=== PATIENT | female | born 1955 | race Caucasian/White ===

== ENCOUNTER → 2017-11-22 12:46 | Outpatient (CLI) | payer BC, SELFPAY ==
--- NOTE | 2017-11-22 12:49 | CT_ITS ---
EXAM: CT LUNG LOW DOSE WO CONTRAST COMPARISON: 11/22/2017 HISTORY: 62-year-old female with greater than 30 pack-year smoking history asymptomatic ORDERING PHYSICIAN: Erik Chambers MD PATIENT AGE: 62 years TECHNIQUE: The exam was performed on a GE Light Speed [address] scanner using 2.95 mGy CTDI. A low dose helical CT CHEST was performed on a multi-detector scanner The LDCT was performed in a facility that meets the criteria for the screening program. Data regarding this exam was submitted to ACR which is an approved registry. The order for this exam indicates that it came as a result of a lung cancer screening counseling shard decision-making visit that included all the elements required of such a visit including smoking cessation. The radiologist interpreting this exam meets the [facility] criteria for the LDCT lung cancer screening program. The exam is reported using the Lung-RADS classification scale and reported to the ACR registry. NOTE: This study was performed for the specific purposes of lung cancer screening and is not an alternative to diagnostic chest CT. RADIATION DOSE: CTDI vol(CT dose Index-volume) = 2.95mG DLP (Dose Length Product) = 108.65 mGcm FINDINGS: There are scattered small mediastinal, and hilar lymph nodes not significantly changed. Small bilateral axillary nodes are present. One noted in the left axilla is slightly larger measuring 16 x 11 mm previously 14 x 8 mm. Centrilobular emphysematous changes. Calcified granulomas present in the left upper lobe with a small linear opacity posterior to the granuloma which is stable. No suspicious pulmonary nodules are evident. There are coronary artery calcifications. IMPRESSION: 1. Lung RADS Category: 2, benign 2. Other findings: Centrilobular emphysema, coronary artery disease, Mild left axillary adenopathy. RECOMMENDATIONS: 12 month LDCT screening Correlation with physical exam to the mildly prominent left axillary lymph node
--- NOTE | 2017-11-22 12:50 | XR_ITS ---
XR DEXA axial skeleton HISTORY: ITS.REASON: POST MENOAPSUAL ORDERING PHYSICIAN: Erik Chambers MD PATIENT AGE: 62 years COMPARISON: 03/28/2012 FINDINGS: The BMD measured at the Right femoral neck is 0.738 g/cm squared with a T score of -2.2 . The L1 L4 density is 0.966 g/sq cm with a T score of -1.8 This is considered Osteopenic according to the World Health Organization criteria. Fracture risk is Moderate. Treatment is advised. The hip density has increased by 5 % in the L-spine density has increased by 1.2% compared to previous exam. IMPRESSION: Osteopenia with moderate fracture risk. Recommend follow-up exam November 2019
== END ==
PROVIDERS: Visit Provider Family Medicine
DX: Z87.891 Personal history of nicotine dependence (principal); Z12.2 Encounter for screening for malignant neoplasm of respiratory organs; Z13.820 Encounter for screening for osteoporosis
CPT/HCPCS: 77080

== ENCOUNTER → 2018-05-23 09:39 | Outpatient (CLI) | payer BC, SELFPAY ==
--- NOTE | 2018-05-23 09:45 | MM_ITS ---
MM Dig screening mamm BI w/CAD ORDERING PHYSICIAN : Erik Chambers MD PATIENT AGE: 62 years GENDER: Female COMPARISON: November 2014, February 2016, April 2017 INDICATION: ITS.REASON: SCREENING. No hormones no new complaints. Family history. Mother breast cancer age 79 TECHNIQUE: Standard CC and MLO images were obtained. R2 CAD reviewed. FINDINGS: Fatty replacement with Relatively low-density breast. Minimal residual fibroglandular elements throughout both central portion breast. . No dominant mass nor suspicious calcifications.. No significant new findings. RIGHT BREAST:No new areas of significant concern Progressive dense calcification at 5 mm area deep right breast likely reflecting a small calcified fibroadenoma LEFT BREAST:No significant new findings. Small axillary and deep intramammary nodes adjacent IMPRESSION: ...... Stable bilateral mammogram. No significant new findings. Bilateral follow-up in one year recommended. BI-RADS Category: 1 Negative RECOMMENDED FOLLOW-UP: 1YR 1 YEAR FOLLOW-UP (A letter has been sent to the patient regarding results of the study.)
== END ==
PROVIDERS: PCP Family Medicine; Visit Provider Family Medicine
DX: Z12.31 Encounter for screening mammogram for malignant neoplasm of breast (principal)
CPT/HCPCS: 77067

== ENCOUNTER → 2019-01-31 13:25 | Outpatient (CLI) | payer BC, SELFPAY ==
--- NOTE | 2019-01-31 13:31 | CT_ITS ---
EXAM: CT LUNG LOW DOSE WO CONTRAST TECHNIQUE: The exam was performed on a GE Light Speed [address] scanner using 3.0 mGy CTDI. A low dose helical CT CHEST was performed on a multi-detector scanner. All CT scans at this facility use one or more dose reduction techniques, viz.: automated exposure control, ma/kV adjustment per patient size (including targeted exams where dose is matched to indication, i.e. head) or iterative reconstruction technique. The LDCT was performed in a facility that meets the criteria for the screening program. Data regarding this exam was submitted to ACR which is an approved registry. The order for this exam indicates that it came as a result of a lung cancer screening counseling shard decision-making visit that included all the elements required of such a visit including smoking cessation. The radiologist interpreting this exam meets the CMS criteria for the LDCT lung cancer screening program. The exam is reported using the Lung-RADS classification scale and reported to the ACR registry. NOTE: This study was performed for the specific purposes of lung cancer screening and is not an alternative to diagnostic chest CT. RADIATION DOSE: CTDI vol(CT dose Index-volume) = 2.9 mGy DLP (Dose Length Product) = 102.38 mGy-cm COMPARISON: 11/22/2017 HISTORY: 1 pack per day 47 years = 45 pack-year . Currently smoking with no sign or symptoms of lung cancer FINDINGS.: MEDIASTINUM. Scattered small/moderate mediastinal, and hilar lymph nodes not significantly changed. The largest right paratracheal node measuring 13 mm x 10 mm. Unchanged in size. Similar size left precarinal node partially calcified old granulomatous process. Also dense calcified node AP window reflecting old granulomatous disease. Small calcified left hilar nodes. Reflecting the same. Lungs. Calcified granuloma at the lingula measures less than 7 mm size again observed. Stable. Benign feature. Minimal scarring lingula. Minor linear scarring at CP angles is seen on sagittal views. Scant apical pleural parenchymal scarring, stable. These are stable and not Not of significance. Small bilateral axillary nodes are present. One more generous nodes at the left axilla appear stable today measuring 14.2 x 8.8 mm-this actually measures slightly less than 11/22/2017 Centrilobular emphysematous changes. Calcified granulomas present in the left upper lobe with a small linear opacity posterior to the granuloma which is stable. No suspicious pulmonary nodules are evident. . coronary artery calcifications again observed. Likely small hiatal hernia accounts for the thickened appearance at the GE junction region of the distal most esophagus. Axial 67, sagittal 47. The left lobe thyroid more generous than the right measuring roughly 4.1 cm length. Likely a small 7 mm nodule at the lower pole left lobe at junction with isthmus. No prominent nor significant change here since previous study IMPRESSION:......... 1. Lung RADS Category: 2, benign .. ... No suspicious lung nodules. Or mass .... Stable granulomatous disease. With nodes peripheral calcified granuloma & stable small/moderate mediastinal nodes 2. Other findings: ... Centrilobular emphysema, ... Coronary artery calcification/ disease,. Atherosclerotic calcification aortic arch11 ... Likely small hiatal hernia, likely accounts for the mild wall thickening here and towards distal most esophagus. ...Stable minor axillary nodes most notable on the left... RECOMMENDATIONS: 12 month LDCT screening Correlation with history of physical exam regarding the left axillary nodes & history of of significant GE reflux :
== END ==
PROVIDERS: PCP Family Medicine; Visit Provider Family Medicine
DX: Z12.2 Encounter for screening for malignant neoplasm of respiratory organs (principal); Z87.891 Personal history of nicotine dependence

== ENCOUNTER → 2019-06-30 09:04 | Outpatient (CLI) | payer BC, SELFPAY ==
--- NOTE | 2019-06-30 09:08 | MM_ITS ---
PROCEDURE: MM DIG SCREENING MAMM BI W/CAD Patient Age:63Y CLINICAL INDICATION: SCREENING no hormones;, no new complaints. Family history. Mother with breast cancer age 79. COMPARISON: DIGMAMMS MAMMOGRAM SCREEN-YIELD ENGINEER N/C from 12/20/2004 DIGMAMMS MAMMOGRAM SCREEN-YIELD ENGINEER N/C from 12/20/2004 [facility] DIGITAL MAMM-SCREEN BILATERAL from 03/28/2012 [facility] DIG MAMM-SCREEN CARROLL from 11/20/2013 [facility] DIG MAMM-SCREEN CARROLL from 11/24/2014 [facility] DIG MAMM-SCREEN CARROLL from 03/23/2016 [facility] DIG MAMM- CARROLL ADD VIEWS from 04/04/2016 the the [facility] DIG MAMM-SCREEN CARROLL W/CAD from 05/04/2017 [facility] MM Dig screening mamm BI w/CAD from 05/23/2018 TECHNIQUE: Standard CC and MLO images were obtained. R2 CAD reviewed. Additional MLO view of the left breast included FINDINGS: the minimal residual fibroglandular elements most evident about the retroareolar region and central breast..-overall low lower density, breast minor asymmetry, but no significant new findings. No dominant nor suspicious mass. No suspicious calcifications.. No new areas of concern on visual inspection. CAD highlights no significant features, only a stable benign left axillary lymph node highlighted Bilateral follow-up 1 year recommended. RIGHT BREAST stable with no new areas of concern. Progressively dense calcification of a small probable 4.5 mm fibroadenoma 6 o'clock central breast. The LEFT BREAST: Small focal a distal density inferior retroareolar region, just behind and inferior to the nipple. This measures just over 6 mm size and is a subtle change since the prior studies but it could be due to overlapping shadow but most likely reflects a area of ductal prominence. Recommend MLO, 90 degree, cc spot views retroareolar region with subsequent ultrasound to further evaluate. IMPRESSION: Left breast but small focal 6 mm ovoid density in retroareolar region most likely related additional ductal prominence or dilatation but subtle change since prior studies which does warrant spot views and ultrasound left breast. Right breast is stable. Follow-up right mammogram 1 year BI-RAD Category: 0 Need Additional Imaging Evaluation FOLLOW-UP: IMM Immediate Follow-up Recommended Spot views retroareolar region left breast; with subsequent ultrasound left breast if density persist (A letter has been sent to the patient regarding results of the study.) Dictated by: Jesse Garcia MD 07/01/2019 11:28 Electronically signed by Jesse Garcia MD in [place] 07/01/2019 11:28
== END ==
PROVIDERS: PCP Family Medicine; Visit Provider Family Medicine
DX: Z12.31 Encounter for screening mammogram for malignant neoplasm of breast (principal)
CPT/HCPCS: 77067

== ENCOUNTER → 2019-07-10 13:23 | Outpatient (CLI) | payer BC, SELFPAY ==
--- NOTE | 2019-07-10 13:26 | MM_ITS ---
PROCEDURE: MM DIG MAMM DX UNILAT LT CAD CLINICAL INDICATION: ABN MAMM Follow-up abnormal mammogram COMPARISON: [facility] DIG MAMM-SCREEN CARROLL W/CAD from 05/04/2017 [facility] MM Dig screening mamm BI w/CAD from 05/23/2018 MM DIG SCREENING MAMM BI W/CAD from 06/30/2019 TECHNIQUE: Problem solving views performed of left breast FINDINGS: Average fibroglandular tissue. There is a 6 mm well-circumscribed nodule in the retroareolar region corresponding to the area of asymmetric density noted on the screening exam. Ultrasound is suggested but was not performed on the day of the diagnostic mammogram. No other significant anomalies are evident. IMPRESSION: 6 mm retroareolar nodule for which ultrasound is recommended. BI-RAD Category: 0 Need Additional Imaging Evaluation FOLLOW-UP: IMM Immediate Follow-up Recommended (A letter has been sent to the patient regarding results of the study.) Dictated by: Ramon Polanco MD 07/15/2019 10:23 Electronically signed by Ramon Polanco MD in [place] 07/15/2019 10:25
== END ==
PROVIDERS: PCP Family Medicine; Visit Provider Family Medicine
DX: R92.8 Other abnormal and inconclusive findings on diagnostic imaging of breast (principal)
CPT/HCPCS: 77065

== ENCOUNTER → 2019-07-18 10:32 | Outpatient (CLI) | payer BC, SELFPAY ==
--- NOTE | 2019-07-18 10:34 | US_ITS ---
PROCEDURE: US BREAST LT COMPLETE CLINICAL INDICATION: ABNORMAL MAMM Follow-up abnormal mammogram COMPARISON: MM DIG MAMM DX UNILAT LT CAD from 07/10/2019 FINDINGS: There is a 6 mm complicated cyst in the retroareolar region corresponding to the mammographic abnormality. There is a small septation within the cyst with some minimal irregularity of the wall. No other significant sonographic abnormalities are evident IMPRESSION: Complicated cyst in the left retroareolar region corresponding to the mammographic abnormality. BI-RADS category 3 probably benign. Recommend six-month mammographic and sonographic follow-up Dictated by: Ramon Polanco MD 07/21/2019 11:00 Electronically signed by Ramon Polanco MD in [place] 07/21/2019 11:00
== END ==
PROVIDERS: PCP Family Medicine; Visit Provider Family Medicine
DX: R92.8 Other abnormal and inconclusive findings on diagnostic imaging of breast (principal)
CPT/HCPCS: 76641

== ENCOUNTER → 2020-11-18 07:34 | Outpatient (CLI) | payer BC, SELFPAY ==
--- NOTE | 2020-11-18 07:38 | CT_ITS ---
PROCEDURE: CT LUNG SCREENING CLINICAL INDICATION: HX OF NICOTINE DEPENDENCE Current smoker 45 pack year smoking history COMPARISON: CT LUNGSCREEN CT lung screening from 01/31/2019 TECHNIQUE: The exam was performed on a GE Light Speed [address] scanner using 2.90 mGy CTDI. A low dose helical CT CHEST was performed on a multi-detector scanner. All CT scans at the facility use one or more dose reduction, viz: automated exposure control, ma/kV adjustment per patient size (including targeted exams where dose is matched to indication, i.e. head), or iterative reconstruction technique. The LDCT was performed in a facility that meets the criteria for the screening program. Data regarding this exam was submitted to ACR which is an approved registry. The order for this exam indicates that it came as a result of a lung cancer screening counseling shard decision-making visit that included all the elements required of such a visit including smoking cessation. The radiologist interpreting this exam meets the [facility] criteria for the LDCT lung cancer screening program. The exam is reported using the Lung-RADS classification scale and reported to the ACR registry. NOTE: This study was performed for the specific purposes of lung cancer screening and is not an alternative to diagnostic chest CT. RADIATION DOSE: CTDI vol(CT dose Index-volume) = 2.90mG DLP (Dose Length Product) = 102.38 mGcm FINDINGS: COPD changes with evidence of old granulomatous disease and centrilobular emphysema. Atelectatic or fibrotic changes present in the right lower lobe and lingula. No suspicious pulmonary nodule evident. OTHER FINDINGS: There is thickening of the GE junction. This is nonspecific and could be seen with nondistention, inflammatory change, or even neoplasm. IMPRESSION: Lung-RADS Category 1 Negative Follow-up: Continue annual screening with LDCT in 12 months Thickened GE junction as described above. Upper endoscopy or barium swallow may provide further evaluation. Dictated by: Ramon Polanco MD 11/21/2020 15:51 Ramon Polanco MD in [place] 11/21/2020 15:51
--- NOTE | 2020-11-18 07:39 | MM_ITS ---
PROCEDURE: MM DIG SCREENING MAMM BI W/CAD Digital Breast Tomosynthesis Included CLINICAL INDICATION: SCREENING There is a history of breast cancer in the patient's mother diagnosed at age 79. COMPARISON: MG [facility] MM Dig screening mamm BI w/CAD from 05/23/2018 MG MM DIG SCREENING MAMM BI W/CAD from 06/30/2019 MG MM DIG MAMM DX UNILAT LT CAD from 07/10/2019 TECHNIQUE: Standard CC and MLO images and 3D Tomosynthesis was obtained. R2 CAD reviewed. FINDINGS: Breasts are composed primarily of fat with minimal scattered fibroglandular densities in the central portions both breast. There is a benign-appearing microcalcification and macro calcification right breast. There is a mole marker right breast. There is a stable small nodular density just deep to the nipple left breast. There is a stable small benign-appearing nodular density central portion left breast. There is no suspicious lesion and no suspicious microcalcifications. IMPRESSION: Moderate breast density with no suspicious lesions seen BI-RAD Category: 2 Benign Finding(s) FOLLOW-UP: 1YR 1 Year Follow-up (A letter has been sent to the patient regarding results of the study.) Dictated by: Dr. Eddie Salvador MD 11/27/2020 09:18 Dr. Eddie Salvador MD in [place] 11/27/2020 09:18
--- NOTE | 2020-11-18 08:13 | XR_ITS ---
PROCEDURE: XR DEXA AXIAL SKELETON CLINICAL HISTORY: OSTEOPOROSIS COMPARISON: CR DEXAAX XR DEXA axial skeleton from 11/22/2017 FINDINGS: The right hip BMD is 0.595 with a T-score of -2.3. The left hip BMD is 0.673 with a T-score of -1.6. The lumbar spine BMD is 0.836 with a T-score of -1.9. IMPRESSION: This patient is considered osteopenic according to the World Health Organization criteria. Bone density is between 10 and 25 percent below young normal. Fracture risk is moderate. Treatment is advised. Based on these results a follow-up exam is recommended in 2 year. Dictated by: Ramon Polanco MD 11/18/2020 22:27 Ramon Polanco MD in [place] 11/19/2020 09:45
== END ==
PROVIDERS: PCP Family Medicine; Visit Provider Family Medicine
DX: Z87.891 Personal history of nicotine dependence (principal); Z12.2 Encounter for screening for malignant neoplasm of respiratory organs; Z12.31 Encounter for screening mammogram for malignant neoplasm of breast; Z13.820 Encounter for screening for osteoporosis; Z78.0 Asymptomatic menopausal state
CPT/HCPCS: 71271; 77063; 77067; 77080

== ENCOUNTER → 2020-11-22 16:16 | Outpatient (CLI) | payer BC, SELFPAY ==
--- NOTE | 2020-11-22 16:20 | XR_ITS ---
PROCEDURE: XR FOOT WT BEARING LT 3V CLINICAL INDICATION: pain COMPARISON: No exams were available for comparison FINDINGS: No fracture or dislocation. No lytic or blastic change. There is normal mineralization. Cortical thickening involves the mid to distal of the 4th 5th metatarsals consistent with old healed fractures. There is also mild cortical thickening of the mid shaft of the 2nd metatarsal suggesting old fracture. Minimal osteoarthritic change talonavicular joint. Small calcaneal spur. Other findings:None. IMPRESSION: Old healed fractures at the 2nd 4th and 5th metatarsals with mild osteoarthritic changes Dictated by: Ramon Polanco MD 11/23/2020 05:50 Ramon Polanco MD in [place] 11/23/2020 05:50
--- NOTE | 2020-11-22 16:20 | XR_ITS ---
PROCEDURE: XR FOOT WT BEARING RT 3V CLINICAL INDICATION: pain COMPARISON: No exams were available for comparison FINDINGS: Mild osteoarthritic change 1st MTP joint. Hypertrophic changes distal aspect of 1st metatarsal. Mild pes planus Mild osteoarthritis the talonavicular joint. Small calcaneal spur. Other findings:None. IMPRESSION: Mild osteoarthritic changes with pes planus with bunion formation at the distal 1st metatarsal Dictated by: Ramon Polanco MD 11/23/2020 05:49 Ramon Polanco MD in [place] 11/23/2020 05:49
== END ==
PROVIDERS: PCP Family Medicine; Visit Provider Podiatrist
DX: M21.611 Bunion of right foot (principal)
CPT/HCPCS: 73630

== ENCOUNTER 2021-05-15 19:29 | Emergency (ER) | payer BC, SELFPAY ==
[2021-05-15 19:30] VITALS: BP 173/98; PULSE 79; RESP 20; TEMP 36.9; O2SAT 95; BMI 27.4
[2021-05-15 19:55] VITALS: BP 173/98; PULSE 79; RESP 20; TEMP 36.9; O2SAT 95
--- NOTE | 2021-05-15 19:55 | HMH.EDUTC ---
[facility] Disposition Clinical Impression: COVID-19 virus test result unknown Disposition: Home, Self-Care Condition on Discharge: Good Instructions: DI for COVID-19 (Suspected or Confirmed ), Preventing the Spread of Coronavirus Discharge Instructions Additional Instructions: covid swab was sent to lab, call later today for results. self isolate until test results are known to be negative No sign of a bacterial infection. Likely viral. Viruses can take 7-14 days to run their course. Nasal saline and bulb syringe or nose Pattie to remove nasal drainage to help with nasal congestion. Hard to eat, drink, sleep with nasal congestion so important to keep this cleaned out. Monitor temp. Tylenol or Motrin as needed for pain or fever Encourage fluids, water, Gatorade, Powerade, Pedialyte if /toddler/child Warm salt water gargles Warm fluids Sore throat lozenges Sleep elevated Humidifier/vaporizer Follow-up immediately for new or worsening symptoms or no noticeable improvement over the next 48-72 hours. Referrals: Erik Chambers MD [Primary Care Provider] - Time of Disposition: 19:59 Medical Decision Making - [place] Inquiry Pt receiving controlled substance: No Orders (Tests/Meds): ORDERS Category Date Time Status Covid-19 Nasal PCR ([facility]) Routine Lab 05/15/21 19:40 Received [facility] HPI - General Chief complaint: Urgent Treatment Center Stated complaint: covid test / exposure Time Seen by Provider: 05/15/21 19:55 Mode of Arrival: Ambulatory Source of Information: Patient Limitations: No Limitations - History of Present Illness Provider Complaint: 65 yr old female presnts for a cough and request covid test. pt states she was around someone that obtained covid test but is unsure of results - Related Data Home Medications Medication Instructions Recorded Confirmed atorvastatin 40 mg tablet 40 mg PO tab 11/22/20 04/05/21 bupropion HCl 300 mg 24 hr tablet, 300 mg PO tab 11/22/20 04/05/21 extended release metoclopramide HCl 5 mg tablet 5 mg PO tab 11/22/20 04/05/21 omeprazole 40 mg capsule,delayed 40 mg PO cap 11/22/20 04/05/21 release tiotropium bromide 2.5 2 inh INHALATION g 11/22/20 04/05/21 mcg/actuation mist for inhalation Previous Rx's Medication Instructions Recorded amoxicillin 500 mg capsule 500 mg PO Q12H 10 Days #20 cap 04/05/21 benzonatate 200 mg capsule 200 mg PO TID PRN 7 Days #21 cap 04/05/21 prednisone 20 mg tablet 20 mg PO BID 5 Days #10 tab 04/05/21 Allergies Allergy/AdvReac Type Severity Reaction Status Date / Time No Known Allergies Allergy Verified 04/05/21 11:03 [facility] History - Hepatitis A Screen Attestation statement:: This patient has been screened for Hepatitis A risk factors. I have reviewed the patient's past medical history: Yes Medical History: Reports:: Chronic Obstructive Pulmonary Disease (COPD), Depression, Gastroesophageal Reflux Disease(GERD), Hyperlipidemia Other Surgeries: Yes: No Previous Surgery - Social History Smoking Status: Current some day smoker Tobacco Type: cigarettes (less than one ppd) Alcohol Intake: never Occupational Status: employed Housing: house Household Members: family - Psychiatric History Pschychiatric History:: Reports:: Depression Family Hx:: Cancer, Hypertension ROS Obtained: Yes Systems reviewed as appropriate & no additional complaints - Constitutional Constitutional: Reports system reviewed and no additional complaints, except as docu, Denies fever(s) - Eyes Eyes: Reports system reviewed and no additional complaints, except as docu, Denies blurry vision - ENT Ears, Nose, Mouth, and Throat: Reports system reviewed and no additional complaints, except as pranayu, Denies sore throat - Cardiovascular Cardiovascular: Reports system reviewed and no additional complaints, except as pranayu, Denies chest pain - Respiratory Respiratory: Reports system reviewed and no additional complaints, except as sherry R
--- NOTE | 2021-05-16 12:09 | PC.NURSE ---
INFORMED PATIENT THAT SHE IS POSITIVE
== END 2021-05-15 20:03 | disposition home or self-care (01) ==
PROVIDERS: Emergency Provider Nurse Practitioner Family; PCP Family Medicine
DX: U07.1 COVID-19 (principal)
CPT/HCPCS: 99202; G0463; U0003

== ENCOUNTER → 2021-09-13 08:24 | Outpatient (CLI) | payer BC, SELFPAY | PROVIDERS: PCP Family Medicine; Visit Provider Nurse Practitioner | DX: Z20.822 Contact with and (suspected) exposure to COVID-19 (principal) | CPT/HCPCS: C9803; U0003; U0005 ==

== ENCOUNTER → 2021-11-16 14:11 | Outpatient (CLI) | payer BC, SELFPAY ==
--- NOTE | 2021-11-16 14:15 | MM_ITS ---
PROCEDURE INFORMATION: Exam: MG Bilateral Screening 3D Mammography Exam date and time: 11/16/2021 2:15 PM Age: 66 years old Clinical indication: Screening mammogram TECHNIQUE: Imaging protocol: Bilateral Screening tomosynthesis and 2D mammography including computer-aided detection (CAD) when performed. COMPARISON: 1. MG MM DIG SCREENING MAMM BI W/CAD 11/18/2020 8:21 AM 2. MG MM DIG MAMM DX UNILAT LT CAD 07/10/2019 1:51 PM 3. MG MM DIG SCREENING MAMM BI W/CAD 06/30/2019 9:44 AM 4. MG [facility] MM Dig screening mamm BI w/CAD 05/23/2018 9:49 AM FINDINGS: MAMMOGRAPHY: Breast composition: There are scattered areas of fibroglandular density. Mass: Stable benign-appearing subcentimeter nodules are present in the bilateral breasts. No new or morphologically suspicious nodule has developed to suggest malignancy. Architectural distortion: No new or suspicious architectural distortion. Calcifications: No new or suspicious calcifications are present Asymmetric density: No new or suspicious asymmetric density is present Skin thickening: None. Axillary adenopathy: None. IMPRESSION: No mammographic evidence of malignancy. Recommend annual screening mammography unless otherwise clinically indicated. ASSESSMENT: BI-RADS category 2: Benign
--- NOTE | 2021-11-16 14:15 | CT_ITS ---
FINAL REPORT TECHNIQUE: Axial images were obtained from the lung apex to the mid abdomen by computed tomography. Low-dose protocol was utilized. CLINICAL HISTORY: H/O NICOTINE DEPENDENCE COMPARISON: 11/18/2020 FINDINGS: CHEST CT LOW DOSE CTDI vol (mGy): 2.90 DLP (mGy-cm): 96.38 There is moderate coronary artery calcification. There are multiple borderline sized axillary nodes which have partially improved since previous. There is no hilar or mediastinal adenopathy. The heart is normal in size. There is no pericardial or pleural effusion. Lung window images demonstrate no suspicious infiltrate or nodule. There is mild emphysema and mild scarring. There is a calcified granuloma in the lingula. Limited images of the upper abdomen are unremarkable. IMPRESSION: Lung RADS category 1. Recommend 12 month follow-up low-dose chest CT. Reviewed, Interpreted and Dictated by Clayton Coburn III, MD Transcribed by Alfreda Chavez Authenticated by Clayton Coburn III, MD on 11/16/2021 04:02:52 PM [facility]
== END ==
PROVIDERS: PCP Family Medicine; Visit Provider Family Medicine
DX: Z87.891 Personal history of nicotine dependence (principal); Z12.2 Encounter for screening for malignant neoplasm of respiratory organs; Z12.31 Encounter for screening mammogram for malignant neoplasm of breast
CPT/HCPCS: 71271; 77063; 77067

== ENCOUNTER 2022-06-26 08:00 | Emergency (ER) | payer BC, SELFPAY ==
[2022-06-26 08:12] VITALS: BP 134/80; PULSE 85; RESP 17; TEMP 36.7; O2SAT 96; BMI 27.4
[2022-06-26 08:25] LABS: UTC Strep Screen (Rapid) Negative (Negative)
--- NOTE | 2022-06-26 08:56 | EXP.UTC ---
Discharge Plan Disposition Patient Disposition: Home, Self-Care Condition: Good Prescriptions Prescriptions: New amoxicillin [amoxicillin] 500 mg tablet 500 mg PO TID 10 Days Qty: 30 0RF benzonatate [benzonatate] 100 mg capsule 100 mg PO TIDP PRN (Reason: Cough) Qty: 30 0RF methylprednisolone 4 mg Tablets,Dose Pack 4 mg PO DIRECTED Qty: 21 0RF No Action tiotropium bromide 2.5 mcg/actuation mist 2 inh INHALATION Label Comments: INHALE TWO PUFFS BY MOUTH EVERY DAY metoclopramide HCl 5 mg tablet 5 mg PO Label Comments: TAKE ONE TABLET BY MOUTH FOUR TIMES DAILY (BEFORE MEALS AND AT BEDTIME) omeprazole 40 mg capsule,delayed release(DR/EC) 40 mg PO DAILY Label Comments: TAKE ONE CAPSULE BY MOUTH EVERY DAY atorvastatin 40 mg tablet 40 mg PO DAILY bupropion HCl 300 mg tablet extended release 24 hr 300 mg PO amoxicillin 500 mg capsule 500 mg PO Q12H 10 Days Qty: 20 0RF prednisone 20 mg tablet 20 mg PO BID 5 Days Qty: 10 0RF Rx Instructions: administer with food or milk benzonatate 200 mg capsule 200 mg PO TID PRN (Reason: cough) 7 Days Qty: 21 0RF Referrals Follow up/Referrals: Erik Chambers MD [Primary Care Provider] - See instructions Activity Restrictions/Add. Instructions Additional Instructions/Restrictions: Drink plenty of fluids. Take tylenol or ibuprofen for pain or fever. Take the medications as directed. Follow up with your regular doctor. GO TO THE ER FOR ANY WORSENING SYMPTOMS Clinical Impressions Clinical Impression: Pharyngitis Instructions Patient Instructions: Strep Throat, DI for Strep Throat Discharge ED Provider: Luis F Chang [facility] General Stated complaint: sore throat,runny nose Mode of Arrival: Ambulatory Source of Information: Patient Limitations: No Limitations Time Seen by Provider: 06/26/22 08:59 HEENT Symptoms (Recalled from RN notes): Yes Resp Symptoms (Recalled from RN notes): No Skin Symptoms (Recalled from RN notes): No MS Symptoms (Recalled from RN notes): No Functional Status (Recalled from RN notes): n/a History of Present Illness Provider Complaint: pt comes in with c/o sore throat that began last night. pt requesting covid test. Related Data Home Medications Medication Instructions Recorded Confirmed atorvastatin 40 mg tablet 40 mg PO DAILY High cholesterol 11/22/20 06/26/22 bupropion HCl 300 mg 24 hr tablet, 300 mg PO 11/22/20 04/05/21 extended release metoclopramide HCl 5 mg tablet 5 mg PO 11/22/20 04/05/21 omeprazole 40 mg capsule,delayed 40 mg PO DAILY GERD 11/22/20 06/26/22 release tiotropium bromide 2.5 2 inh inhalation 11/22/20 04/05/21 mcg/actuation mist for inhalation Previous Rx's Medication Instructions Recorded amoxicillin 500 mg capsule 500 mg PO Q12H uri 10 days #20 caps 04/05/21 benzonatate 200 mg capsule 200 mg PO TID PRN cough 7 days #21 04/05/21 caps prednisone 20 mg tablet 20 mg PO BID uri 5 days #10 tabs 04/05/21 amoxicillin 500 mg tablet 500 mg PO TID 10 days #30 tabs 06/26/22 benzonatate 100 mg capsule 100 mg PO TIDP PRN Cough #30 caps 06/26/22 methylprednisolone 4 mg tablets in 4 mg PO DIRECTED #21 tabs 06/26/22 a dose pack Allergies Allergy/AdvReac Type Severity Reaction Status Date / Time No Known Allergies Allergy Verified 06/26/22 08:17 Worker's Comp Is this a Worker's Comp case?: No PFSH PFSH Social History Smoking Status: Current some day smoker tobacco type: cigarettes (less than one ppd) alcohol intake: never current occupational status: employed Travel in the last 8 weeks: Inside the [place] ([place]) household members: family housing: house ROS Obtained: Yes All systems reviewed & no additional complaints except as documented Constitutional Constitutional: Reports chills and Reports fever(s) Eyes Eyes: D
[2022-06-26 08:59] VITALS: BP 134/80; PULSE 85; RESP 17; TEMP 36.7
== END 2022-06-26 09:06 | disposition home or self-care (01) ==
PROVIDERS: Emergency Provider Nurse Practitioner Family; PCP Family Medicine
DX: J02.9 Acute pharyngitis, unspecified (principal)
CPT/HCPCS: 87880; 99212; C9803; G0463; U0003; U0005

== ENCOUNTER → 2022-11-29 07:11 | Outpatient (CLI) | payer BC, SELFPAY ==
--- NOTE | 2022-11-29 07:16 | MM_ITS ---
PROCEDURE INFORMATION: Exam: MG Bilateral Screening 3D Mammography Exam date and time: 11/29/2022 7:52 AM Age: 67 years old Clinical indication: Screening examination TECHNIQUE: Imaging protocol: Bilateral Screening tomosynthesis and 2D mammography including computer-aided detection (CAD) when performed. COMPARISON: 1. MG MM DIG SCREENING MAMM BI W/CAD 11/16/2021 2:24 PM 2. MG MM DIG SCREENING MAMM BI W/CAD 11/18/2020 8:21 AM FINDINGS: MAMMOGRAPHY: Breast composition: There are scattered areas of fibroglandular density. Mass: 0.6 cm mass in the anterior third of the right upper outer quadrant Architectural distortion: None. Calcifications: No suspicious calcifications. Asymmetric density: None. Skin thickening: None. Axillary adenopathy: None. IMPRESSION: Patient to be recalled for spot compression views of the right breast in the CC and MLO projections, a full 90 degree lateral view, and right breast ultrasound for further evaluation of a right breast mass. ASSESSMENT: BI-RADS Category 0: Incomplete- Need Additional Imaging Evaluation and/or Prior Mammograms for Comparison
--- NOTE | 2022-11-29 07:16 | CT_ITS ---
FINAL REPORT TECHNIQUE: Axial images were obtained from the lung apex to the mid abdomen by computed tomography. This study was performed with techniques to keep radiation doses as low as reasonably achievable (ALARA). Individualized dose reduction techniques using automated exposure control or adjustment of mA and/or kV according to the patient's size were employed. CLINICAL HISTORY: H/O TOBACCO USE, smoker 1/ pack per day for 50 years COMPARISON: 11/16/2021 FINDINGS: CHEST CT LOW DOSE CTDI vol (mGy): 2.90 DLP (mGy-cm): 101.86 There is moderate vascular calcification of the aortic arch. There is no axillary adenopathy. There is no hilar or mediastinal adenopathy. The heart is normal in size. There is no pericardial or pleural effusion. Lung window images demonstrate no suspicious infiltrate or nodule. There are moderate changes of centrilobular emphysema. There is scarring/fibrosis in the lung bases. Limited images of the upper abdomen are unremarkable. IMPRESSION: Lung RADS category 1. Recommend 12 month follow-up low-dose chest CT. Reviewed, Interpreted and Dictated by Jass Mooney MD Transcribed by Alfreda Chavez Authenticated and . [facility]
== END ==
PROVIDERS: PCP Family Medicine; Visit Provider Family Medicine
DX: Z12.31 Encounter for screening mammogram for malignant neoplasm of breast (principal); Z87.891 Personal history of nicotine dependence; Z12.2 Encounter for screening for malignant neoplasm of respiratory organs
CPT/HCPCS: 71271; 77063; 77067

== ENCOUNTER → 2022-12-20 12:36 | Outpatient (CLI) | payer BC, SELFPAY ==
--- NOTE | 2022-12-20 12:39 | MM_ITS ---
PROCEDURE INFORMATION: Exam: US Right Breast, Complete MG Right Diagnostic Breast Tomosynthesis Exam date and time: 12/20/2022 1:16 PM Age: 67 years old Clinical indication: Callback for additional assessment of a 0.6 cm mass in the anterior right upper outer quadrant identified on screening mammogram 11/29/2022 TECHNIQUE: Imaging protocol: Complete ultrasound of all four quadrants of the right breast and the retroareolar regions, including ultrasound of the axilla when performed. Right Diagnostic tomosynthesis and 2D mammography including computer-aided detection (CAD) when performed. Unilateral or bilateral exam. COMPARISON: MG MM DIG MAMM DX UNILAT RT CAD 12/20/2022 12:51 PM FINDINGS: MAMMOGRAPHY: There is a persistent irregular partially obscured mammographically new 0.7 cm mass in the upper outer right breast approximately 3 cm from the nipple. No associated architectural distortion or suspicious calcifications are present ULTRASOUND: In the region of mammographic interest, 10 o'clock right breast 4 cm from the nipple, there is a 0.5 x 0.5 x 0.4 cm microlobulated near anechoic mass. Differential considerations include cystic neoplasm or complicated cyst/verbal microcysts. IMPRESSION: Ultrasound-guided biopsy is recommended to definitively characterize an anterior right 10 o'clock mammographically new 0.5 cm cystic appearing mass ASSESSMENT: BI-RADS category 4: Suspicious
== END ==
PROVIDERS: PCP Family Medicine; Visit Provider Family Medicine
DX: R92.8 Other abnormal and inconclusive findings on diagnostic imaging of breast (principal)
CPT/HCPCS: 76641; 77061; 77065; G0279

== ENCOUNTER → 2023-01-22 07:27 | Outpatient (CLI) | payer BC, SELFPAY ==
--- NOTE | 2023-01-22 07:36 | US_ITS ---
FINAL REPORT CLINICAL HISTORY: ABN MAMM RT BREAST--, right breast nodule FINDINGS: ULTRASOUND-GUIDED RIGHT BREAST FNA TECHNIQUE: Limited images were obtained to localize region of interest. The right breast was prepped in a routine sterile fashion and locally anesthetized with 1% lidocaine. Standard written informed consent was obtained. A subcentimeter lesion was identified within the right breast at approximately 10:00. An 18-gauge needle was directed into the lesion. Approximately 1 mL of heme tinged fluid was aspirated. The nodule was completely collapsed compatible with a complex cysts. Aspirate was sent for cytologic evaluation. A postbiopsy mammogram was acquired which demonstrated the nodule to no longer be evident compatible with decompressed nodule. Procedure was well tolerated . CONCLUSION: 1. Technically successful ultrasound guided FNA of right breast nodule likely a complex cyst. Aspirate sent for cytologic evaluation 2. Post biopsy mammogram shows resolution of nodule 3. Short-term mammographic and sonographic follow-up is recommended in 6 months as part of post benign biopsy surveillance. Authenticated and [facility]
--- NOTE | 2023-01-22 07:37 | MM_ITS ---
FINAL REPORT CLINICAL HISTORY: post us bx, abnormal mammogram. Right breast nodule FINDINGS: MAMMOGRAM RIGHT TECHNIQUE: Standard digital 2-D views COMPARISON: 11-29-22 DENSITY: There are scattered areas of fibroglandular density FINDINGS: A nodule seen previously on mammogram is no longer evident. The nodule was considered a benign cyst upon FNA/aspiration, no longer evident after the aspiration procedure. There was no clip placement associated with the FNA. Postbiopsy changes are noted. IMPRESSION: Resolved right breast nodule following aspiration further indicative of benign cyst RECOMMENDATION: Short-term sonographic and mammographic follow-up right breast in 6 months as part of normal post benign biopsy surveillance Authenticated and [facility]
== END ==
PROVIDERS: PCP Family Medicine; Visit Provider Family Medicine
DX: R92.8 Other abnormal and inconclusive findings on diagnostic imaging of breast (principal); N63.10 Unspecified lump in the right breast, unspecified quadrant
CPT/HCPCS: 19083; 77065

== ENCOUNTER 2023-02-06 11:14 | Day surgery (SDC) | payer MEDICARE, SELFPAY ==
[2023-02-01 11:10] VITALS: BMI 60.5
[2023-02-06 11:37] VITALS: BP 145/83; PULSE 84; RESP 18; TEMP 36.9; O2SAT 95
--- NOTE | 2023-02-06 11:44 | P.PN_ITS ---
[facility] Disclaimer: The information contained in this section may have been updated after the patient was seen, as this information can be updated by other users. Medical History COPD (chronic obstructive pulmonary disease) GERD (gastroesophageal reflux disease) HLD (hyperlipidemia) Surgical History No history of previous surgery Family History Other Family history of cancer Social History Smoking Status: Current some day smoker tobacco type: cigarettes (less than one ppd) alcohol intake: never substance use type: denies use current occupational status: employed and retired Travel in the last 8 weeks: None ([place]) household members: family housing: house [facility] Anesthesia Checklist Patient Identification Patient Identification: Arm Band and Verbal (Name & ) Structural Data Admitted From: Home Planned Operative Procedure/s: Colonoscopy Consent for Planned Operative Procedure(s) Verified: Yes NPO Status Verified Time NPO: 00:00 Airway Assessment C-Spine Mobility Assessed: Yes TMJ Mobility Assessed: Yes Dentition: Good Dentition Neurological Assessment Level of Consciousness: Awake Hx Seizures: No Numbness or tingling in extremities: No Anesthesia Plan Anesthesia Risk discussed: Yes Anesthesia Plan: Verified ASA Class: II Anesthesia Type: MAC
--- NOTE | 2023-02-06 12:35 | HMH.SCOPE ---
Procedure: Date: 02/06/23 Patient Date of :: 1955 Procedure Performed:: Colonoscopy with polypectomy Indications:: Positive Cologuard Performing Provider:: Timothy Fernandez MD Referring Provider:: . Sedation:: Monitored anesthesia care Procedure:: After informed consent was obtained the patient was taken to the endoscopy suite. Sedation ensued after the patient was transferred to the left lateral decubitus position. Pulse, blood pressure, and oxygen saturation were monitored throughout the procedure. Digital rectal exam revealed no significant abnormality. The colonoscope was placed in position. The entire colon was evaluated. The colonoscope was carefully removed and the patient was transferred to recovery in stable condition. Please see findings and specimens below for detail. Findings:: Bowel preparation fair Hemorrhoidal cushions Fairly profound tortuosity noted throughout Scattered hyperplastic-appearing sigmoid polyps Early sigmoid diverticulum Polyps (see specimens) Specimens:: Sessile polyp at 40 cm (cold snare and cold biopsy forceps) Adjacent polyps (x3) at 15 cm (cold snare) Recommendations:: Timing of repeat colonoscopy is pending pathology but will likely be less than 3 years secondary to positive Cologuard and tortuosity Barium enema warranted secondary to profound tortuosity and positive Cologuard study Complications:: No immediate Estimated blood obtained (mL): 1
[2023-02-06 12:37] VITALS: BP 80/47; PULSE 80; RESP 18; TEMP 36.2; O2SAT 93
[2023-02-06 12:47] VITALS: BP 95/47; PULSE 73; RESP 18; O2SAT 93
[2023-02-06 12:57] VITALS: BP 104/45; PULSE 70; RESP 18; O2SAT 94
[2023-02-06 13:12] VITALS: BP 115/71; PULSE 71; RESP 18; O2SAT 97
== END 2023-02-06 13:14 | disposition home or self-care (01) ==
PROVIDERS: PCP Family Medicine; Visit Provider Surgery
PROC: 0DJD8ZZ Inspection of Lower Intestinal Tract, Via Natural or Artificial Opening Endoscopic (ICD-10-PCS; principal; 2023-02-06 12:30)
DX: R19.5 Other fecal abnormalities (principal); K63.5 Polyp of colon; F17.210 Nicotine dependence, cigarettes, uncomplicated
CPT/HCPCS: 45380; 45385; J2704

== ENCOUNTER → 2023-08-30 09:56 | Outpatient (CLI) | payer MEDICARE, SELFPAY | LOC: LAB.DROPOF 08-31 09:56 | PROVIDERS: PCP Family Medicine; Visit Provider Student in an Organized Health Care Education/Training Program | DX: J02.9 Acute pharyngitis, unspecified (principal); B37.89 Other sites of candidiasis | CPT/HCPCS: 87070 ==

== ENCOUNTER 2023-10-18 12:28 | Outpatient (CLI) | payer MEDICARE, SELFPAY ==
--- NOTE | 2023-10-18 12:33 | XR_ITS ---
FINAL REPORT CLINICAL HISTORY: RT SIDED SCIATICA PAIN FINDINGS: 5 views of the lumbar spine were obtained. There is no evidence of fracture or dislocation. The vertebral alignment is normal. There are mild to moderate degenerative changes. Disc spaces are preserved. No paraspinous soft tissue abnormalities identified. IMPRESSION: No acute bony abnormality. Reviewed, Interpreted and Dictated by Clayton Coburn III, MD Transcribed by Irina Yusuf Authenticated and . [facility]
== END 2023-10-18 23:59 ==
PROVIDERS: PCP Family Medicine; Visit Provider Family Medicine
DX: M54.31 Sciatica, right side (principal)
CPT/HCPCS: 72110

== ENCOUNTER 2023-12-13 08:37 | Outpatient (CLI) | payer MEDICARE, SELFPAY ==
--- NOTE | 2023-12-13 08:39 | MR_ITS ---
FINAL REPORT CLINICAL HISTORY: ACUTE RIGHT SIDED LOW BACK PAIN. RIGHT LEG PAIN COMPARISON: None FINDINGS: Multiplanar MR imaging of the lumbar spine was performed without contrast. There is mild rightward curvature of the lumbar spine. On the sagittal T2-weighted images, disc degeneration is seen at multiple levels. The vertebral alignment is normal. There is no evidence of fracture. No bony mass is identified. The conus has an unremarkable appearance. T12-L1: There is no significant canal stenosis or neural foraminal narrowing. L1-2: An annular bulge is present. There is no significant canal stenosis or neural foraminal narrowing. L2-3: An annular bulge is present. There is no significant canal stenosis or neural foraminal narrowing. L3-4: Annular disc bulge and facet arthropathy. Mild bilateral neural foraminal narrowing. L4-5: Annular disc bulge and facet arthropathy. mild bilateral neural foraminal narrowing. Mild central canal stenosis with AP diameter of the thecal sac of 8 mm. L5-S1: Annular disc bulge and facet arthropathy. Posterior midline annular tear. Mild bilateral neural foraminal narrowing. IMPRESSION: Multilevel degenerative disc disease and spondylosis as described. L5-S1 annular tear. Mild central stenosis at L4-5. Reviewed, Interpreted and Dictated by Clayton Coburn III, MD Transcribed by Agnes Ayala Authenticated and [facility]
== END 2023-12-13 23:59 ==
LOC: RAD 08:37
PROVIDERS: PCP Family Medicine; Visit Provider Family Medicine
DX: M47.816 Spondylosis without myelopathy or radiculopathy, lumbar region (principal); M54.41 Lumbago with sciatica, right side; R29.898 Other symptoms and signs involving the musculoskeletal system
CPT/HCPCS: 72148; 76376

== ENCOUNTER 2024-01-02 12:55 | Outpatient (POV) | payer MEDICARE, SELFPAY ==
[2024-01-02 12:58] VITALS: BP 147/80; PULSE 73; RESP 18; O2SAT 100; BMI 25.7
--- NOTE | 2024-01-02 13:26 | A.OFFVIS_ITS ---
HPI Data of Consult Patient: new to practice Consult date: 01/02/24 Requesting Physician: Tiffanie Diego APRN Primary Care Provider: Erik Chambers MD Consult Narrative Reason for consult: Low back pain, right leg pain History of present illness: Ms. Nicholson is a 68 year old female who presents today as a new patient. She is a referral from Dr. Chambers's office. Today she rates her pain a 10 out of 10. Patient states her pain is only in her low back with radiating symptoms down her entire right leg to her heel. Patient states it has been going on for 5 months unrelated to any specific trauma or injury. She does describe this as an aching, throbbing sensation with numbness and tingling down the entire e xtremity. Patient does states she also has pain behind her buttocks area at the top of her leg. Patient states the pain does interfere with her ability perform activities of daily living such as cooking and cleaning. Patient has tried [id number] Tylenol and ibuprofen along with heat and ice and topicals with minimal relief. Patient has been prescribed meloxicam and pain medication with minimal relief. Patient states that she did go to chiropractor therapy for 2 months straight twice a week with no relief. Patient states that when she did get her MRI that the chiropractor stated that there was not a whole lot they could do additionally. Patient now is currently in physical therapy and has been going twice a week for the last 3 weeks with minimal improvements. Patient has been prescribed pregabalin, gabapentin and tramadol in the past. Patient is interested in any options we may be able to provide. Her Chucho has been reviewed and is appropriate. CC: Tiffanie Diego APRN [facility] Disclaimer: The information contained in this section may have been updated after the patient was seen, as this information can be updated by other users. Medical History COPD (chronic obstructive pulmonary disease) GERD (gastroesophageal reflux disease) HLD (hyperlipidemia) Surgical History History of colonoscopy No history of previous surgery Family History Other Family history of cancer Social History (Updated 01/02/24 @ 13:25 by Robyn Lopez RN) Smoking Status: Current some day smoker tobacco type: cigarettes (less than one ppd) alcohol intake: never substance use type: denies use current occupational status: retired Travel in the last 8 weeks: None household members: family housing: house Review of Systems Review of Systems Review of systems:: pertinent systems reviewed and negative unless documented below Review of systems (narrative): Review of Systems: General: No recent weight changes, no fever, no sleep disturbances Respiratory: No cough, no shortness of air, no recurring pulmonary infections Cardiovascular/peripheral vascular: No chest pain, no palpitations, no edema, no shortness of breath Gastrointestinal: No new onset incontinence, normal bowel movements reported Genitourinary: No new onset incontinence Musculoskeletal: Low back pain, buttocks pain, right leg pain Psychiatric: [Normal mood/affect] Neurological: [Denies weakness in extremities], [denies balance issues] Meds Home Medications and Allergies Home Medications Medication Instructions Recorded Confirmed Type atorvastatin 40 mg tablet 40 mg PO DAILY High cholesterol 11/22/20 08/30/23 History metoclopramide HCl 5 mg tablet 5 mg PO DAILY stomach 11/22/20 08/30/23 History omeprazole 40 mg capsule,delayed 40 mg PO DAILY GERD 11/22/20 08/30/23 History release meloxicam 15 mg tablet 15 mg PO 02/14/23 08/30/23 History benzonatate 100 mg capsule 100 mg PO BID PRN cough #10 caps 08/30/23 08/30/23 Rx fluticasone propionate 50 1 spray intranasal DAILY #16 grams 08/30/23 08/30/23 Rx mcg/actuation nasal spray,suspension (Allergy Relief (fluticasone)) tiotropium bromide 2.5 2 inh inhalation DAILY COPD #4 08/30/23 08/30/23 Rx mcg/actuation mist for inhalation grams fluconazole 200 mg tablet 200 mg PO DAILY 7 days #7 tabs 09/05/23 Rx New Prescriptions to Start Prescriptions: Allergies Allergy/AdvReac Type Severity Reaction Status Date / Time No Known Allergies Allergy Verified 08/30/23 14:03 Objective Narrative: Physical Exam: General: Alert and oriented x3, no acute distress, pleasant and cooperative Lungs: Respirations even and unlabored, symmetrical chest expansion Eyes: PERRL Musculoskeletal: Flexion and extension of lumbar [spine] somewhat guarded secondary to pain, [antalgic gait noted] positive right leg raise with decreased sensation to light touch and decreased reflexes Neurological: Speech clear, no gross sensory deficit Additional findings Additional findings: FINDINGS: Multiplanar MR imaging of the lumbar spine was performed without contrast. There is mild rightward curvature of the lumbar spine. On the sagittal T2-weighted images, disc degeneration is seen at multiple levels. The vertebral alignment is normal. There is no evidence of fracture. No bony mass is identified. The conus has an unremarkable appearance. T12-L1: There is no significant canal stenosis or neural foraminal narrowing. L1-2: An annular bulge is present. There is no significant canal stenosis or neural foraminal narrowing. L2-3: An annular bulge is present. There is no significant canal stenosis or neural foraminal narrowing. L3-4: Annular disc bulge and facet arthropathy. Mild bilateral neural foraminal narrowing. L4-5: Annular disc bulge and facet arthropathy. mild bilateral neural foraminal narrowing. Mild central canal stenosis with AP diameter of the thecal sac of 8 mm. L5-S1: Annular disc bulge and facet arthropathy. Posterior midline annular tear. Mild bilateral neural foraminal narrowing. IMPRESSION: Multilevel degenerative disc disease and spondylosis as described. L5-S1 annular tear. Mild central stenosis at L4-5. Reviewed, Interpreted and Dictated by Clayton Coburn III, MD Transcribed by Agnes Ayala Authenticated and . [facility] Assessment and Plan *Assessment and plan (1) Degenerative disc disease, lumbar: Status: Acute Category: Medical Code(s): M51.36 - Other intervertebral disc degeneration, lumbar region (2) Lumbar radiculopathy: Status: Acute Category: Medical Code(s): M54.16 - Radiculopathy, lumbar region (3) Right leg pain: Status: Acute Category: Medical Code(s): M79.604 - Pain in right leg (4) Lumbar spinal stenosis: Status: Acute Qualifiers: Neurogenic claudication status: with neurogenic claudication Qualified Code(s): M48.062 - Spinal stenosis, lumbar region with neurogenic claudication Category: Medical Code(s): M48.061 - Spinal stenosis, lumbar region without neurogenic claudication Plan Patient is experiencing significant pain in her low back and right leg. Patient did have limited range of motion of her lumbar spine with a positive right leg raise and decreased sensation light touch and decreased reflexes. I have discussed with the patient that she may benefit from a right transforaminal epidural steroid injection. Risk and benefits were discussed with patient and she would like to proceed forward with this plan of care. Patient is not on any blood thinners. Patient has tried and failed conservative therapy including oral medications, heat and ice, topicals, chiropractor therapy for 8 weeks and current physical therapy for 3 weeks with additional at home exercise and stretching for longer than 6 weeks. We will submit to insurance for the right transforaminal epidural steroid injection at L4-L5 and L5-S1 under fluoroscopy. Patient has been instructed to contact the clinic with any concerns before the next appointment. Dr. Richards has reviewed this note and agrees with this plan of care. This note was dictated using voice recognition software and make contain errors or omissions.
== END 2024-01-02 23:59 | disposition home or self-care (01) ==
LOC: SC.PAIN 12:56
PROVIDERS: PCP Family Medicine; Visit Provider Nurse Practitioner Family
DX: M79.604 Pain in right leg; M48.062 Spinal stenosis, lumbar region with neurogenic claudication; M51.16 Intervertebral disc disorders with radiculopathy, lumbar region
CPT/HCPCS: 99202; G0463

== ENCOUNTER 2024-01-22 08:48 | Day surgery (SDC) | payer MEDICARE, SELFPAY ==
[2024-01-22 09:30] VITALS: BP 153/71; PULSE 79; RESP 18; O2SAT 97; BMI 25.7
[2024-01-22 09:48] VITALS: BP 160/45; PULSE 79; RESP 18; O2SAT 94
[2024-01-22] MEDS: LIDOCAINE 1% 5ML PF VIAL 5 ML (09:48)
[2024-01-22 09:50] VITALS: BP 160/45; PULSE 75; RESP 18; O2SAT 94
[2024-01-22 09:58] VITALS: BP 166/76; PULSE 65; RESP 18; O2SAT 97
--- NOTE | 2024-01-22 09:58 | EXP.PAIN.PRO ---
Procedure Date: 01/22/24 Time: 09:50 Anesthesiologist:: Figueroa Saleem CRNA Complications:: None Pre-procedure Diagnosis:: Degenerative disc lumbar spine multilevels. Lumbar radiculopathy. Lumbar disc bulge L4-5, L5-S1. Post-procedure Diagnosis:: Same. Indications for Procedure:: Patient is a very pleasant 68-year-old female comes our clinic today for right transforaminal epidural steroid injections L4-5 and L5-S1 level. Patient describes low back pain is constant, dull, aching. Patient also reports right hip and leg radicular symptoms to the foot. She rates her pain 8/10. Procedure Details:: Details of the procedure were explained to the patient. The patient was taken the procedure room placed in the prone position. The area of the lumbar spine was cleansed using chlorhexidine as a cleansing solution. At this time using fluoroscopy guidance markers were placed on the right lateral border of the L4 and L5 vertebral body. The skin and subcutaneous tissue was anesthetized using 1% lidocaine and 25-gauge needle. At this time using a 22-gauge 3-1/2 inch spinal needle the right upper one third of the L4-5 foramen was accessed. The same was done at the right L5-S1 foramen. Needle positions were confirmed and a lateral view using fluoroscopy and contrast dye. At this time 1 cc of 1% lidocaine +20 mg of Depo-Medrol was injected at each level after negative aspiration. [place] were removed. Band-Aid applied. Patient tolerated the procedure without difficulty. There are no complications. Plan and Disposition:: Patient was discharged without incident.
== END 2024-01-22 10:00 | disposition home or self-care (01) ==
LOC: SC.PAINP 08:50
PROVIDERS: PCP Family Medicine; Visit Provider Nurse Anesthetist, Certified Registered
DX: M51.16 Intervertebral disc disorders with radiculopathy, lumbar region (principal); M51.26 Other intervertebral disc displacement, lumbar region
CPT/HCPCS: 64483; 64484; J1010

== ENCOUNTER 2024-02-08 09:28 | Outpatient (POV) | payer MEDICARE, SELFPAY ==
[2024-02-08 09:39] VITALS: BP 142/53; PULSE 49; RESP 16; O2SAT 97; BMI 25.7
--- NOTE | 2024-02-08 11:25 | EXP.PAIN.SOA ---
[facility] Pain Management SOAP Note Subjective:: This patient is a very pleasant 68-year-old female comes our clinic today for follow-up visit after receiving right transforaminal L4-5, L5-S1 epidural steroid injection. Patient reporting continued right buttock as well as right posterior leg radicular symptoms to the knee. Upon examination she has slight tenderness over the lumbar spine. However, patient reports low back pain is constant, dull, aching. She rates her pain 8/10. I reviewed the lumbar MRI with the patient. She has multilevel disc bulge lumbar spine. Multilevel facet arthropathy. Multilevel spondylosis. Annular tear at 5 S1 with bilateral neuroforaminal narrowing. She has tried and failed physical therapy. Tried and failed NSAIDs as well as Tylenol. I recommend gabapentin 100 mg 1 p.o. 3 times daily. Meloxicam 15 mg 1 daily. Her Chucho has been reviewed and appropriate. I discussed in detail with the patient regarding the medications and expected results. She wishes to proceed. Also, I recommend lumbar epidural steroid injection intralaminar at the L4-5 level. Objective:: Patient is awake alert oriented x 3. In no acute distress. Flexion-extension lumbar spine guarded secondary to pain. Deep tendon reflexes upper and lower extremities normal. Motor strength upper and lower extremities normal. There is no gross sensory deficit. Gait is normal. Assessment:: Degenerative disc lumbar spine multilevels. Lumbar radiculopathy. Lumbar disc bulge multilevel. Lumbar multilevel facet arthropathy. Lumbar spondylosis. Plan:: We will plan intralaminar lumbar epidural steroid injection at the L4-5 level. This will give us more coverage of anti-inflammatory in the lumbar spine epidural space. This could increase the degree of relief. I discussed in detail with the patient regarding outcome expected from intralaminar epidural. I also mentioned surgery consultation for the patient pending relief from the lumbar epidural steroid injection. [facility] Disclaimer: The information contained in this section may have been updated after the patient was seen, as this information can be updated by other users. Medical History COPD (chronic obstructive pulmonary disease) GERD (gastroesophageal reflux disease) HLD (hyperlipidemia) Surgical History History of colonoscopy No history of previous surgery Family History Other Family history of cancer Social History Smoking Status: Current some day smoker tobacco type: cigarettes (less than one ppd) alcohol intake: never substance use type: denies use current occupational status: other Travel in the last 8 weeks: None household members: family housing: house
== END 2024-02-08 23:59 | disposition home or self-care (01) ==
PROVIDERS: PCP Family Medicine; Visit Provider Nurse Anesthetist, Certified Registered
DX: M51.16 Intervertebral disc disorders with radiculopathy, lumbar region (principal); M51.26 Other intervertebral disc displacement, lumbar region; M47.26 Other spondylosis with radiculopathy, lumbar region
CPT/HCPCS: 99212; G0463

== ENCOUNTER 2024-02-26 11:01 | Day surgery (SDC) | payer MEDICARE, SELFPAY ==
[2024-02-26 11:40] VITALS: BP 145/77; PULSE 73; RESP 18; TEMP 36.8; O2SAT 96; BMI 25.7
[2024-02-26] MEDS: methylPREDNISolone ACETATE 80MG/ML VIAL 80 MG (11:44)
--- NOTE | 2024-02-26 11:47 | EXP.PAIN.PRO ---
Procedure Date: 02/26/24 Time: 11:40 Anesthesiologist:: Figueroa Saleem CRNA Complications:: None Pre-procedure Diagnosis:: Degenerative disc lumbar spine multilevels. Lumbar radiculopathy. Post-procedure Diagnosis:: Same. Indications for Procedure:: Patient is a very pleasant 68-year-old female comes our clinic today for lumbar epidural steroid injection. Patient is status post L4-5 and L5-S1 transforaminal epidural steroid injection on the right. She is continue with some right buttock pain as well as posterior right leg radicular symptoms. She has some tenderness over the lumbar spine. She rates her pain 7/10. Procedure Details:: Procedure: Lumbar epidural steroid injection under fluoroscopy Informed consent was obtained and the risks and benefits of the procedure were explained to the patient. The patient was taken to the procedure room and noninvasive monitors placed, including noninvasive blood pressure cuff and pulse oximeter. The back was viewed using C-arm Fluoroscopy and prepped using Chloraprep as a cleansing solution and the L4-L5 interspace was palpated. Skin and subcutaneous tissues were anesthetized using lidocaine 1.5% and a 25-gauge needle. After this, an 18-gauge Touhy epidural needle was placed into the L4-L5 interspace and advanced using fluoroscopic guidance and loss of resistance to air until the epidural space was encountered. After confirmation of needle placement in the epidural space, with dye, a solution containing normal saline, 3 mL and Depo-Medrol 80 mg were incrementally injected into the lumbar epidural space. The patient tolerated the procedure well with no complications. The patient was observed in the Pain Clinic and then discharged home neurologically intact. Plan and Disposition:: Patient was discharged without incident.
[2024-02-26 11:49] VITALS: BP 161/70; PULSE 77; RESP 18; O2SAT 95
[2024-02-26 11:50] VITALS: BP 161/70; PULSE 77; RESP 18; O2SAT 95
[2024-02-26 11:54] VITALS: BP 155/80; PULSE 67; RESP 18; O2SAT 97
== END 2024-02-26 11:55 | disposition home or self-care (01) ==
PROVIDERS: PCP Family Medicine; Visit Provider Nurse Anesthetist, Certified Registered
DX: M51.16 Intervertebral disc disorders with radiculopathy, lumbar region (principal)
CPT/HCPCS: 62323; J1010

== ENCOUNTER 2024-03-24 14:40 | Outpatient (POV) | payer MEDICARE, SELFPAY ==
--- NOTE | 2024-03-24 15:30 | A.OFFVIS_ITS ---
[facility] Disclaimer: The information contained in this section may have been updated after the patient was seen, as this information can be updated by other users. Medical History COPD (chronic obstructive pulmonary disease) GERD (gastroesophageal reflux disease) HLD (hyperlipidemia) Surgical History History of colonoscopy No history of previous surgery Family History Other Family history of cancer Social History Smoking Status: Current some day smoker tobacco type: cigarettes (less than one ppd) alcohol intake: never substance use type: denies use current occupational status: other Travel in the last 8 weeks: None household members: family housing: house PM Subjective & Objective Subjective Subjective:: Patient is a pleasant 68-year-old female who presents today for follow-up of lumbar epidural steroid injection L4-L5 on 02/26/2024. Today she rates her pain a 2 out of 10. Patient denies any new trauma or injury. She does state that she has had at least 90% improvement following this injection and feels like it still helping. Patient states that her pain is not as severe and much more manageable. Her Chucho has been reviewed and is appropriate. Review of Systems: General: No recent weight changes, no fever, no sleep disturbances Respiratory: No cough, no shortness of air, no recurring pulmonary infections Cardiovascular/peripheral vascular: No chest pain, no palpitations, no edema, no shortness of breath Gastrointestinal: No new onset incontinence, normal bowel movements reported Genitourinary: No new onset incontinence Musculoskeletal: Low back pain Psychiatric: [Normal mood/affect] Neurological: [Denies weakness in extremities], [denies balance issues] Pain at rest (0-10 scale): 2 Objective Objective:: Physical Exam: General: Alert and oriented x3, no acute distress, pleasant and cooperative Lungs: Respirations even and unlabored, symmetrical chest expansion Eyes: PERRL Musculoskeletal: Flexion and extension of lumbar [spine] somewhat guarded secondary to pain, [antalgic gait noted] Neurological: Speech clear, no gross sensory deficit Has patient had previous pain injection?: Yes Percent improvement in pain since last injection: 90% Conservative treatment options previously tried: Home exercise plan Length of treatment: Longer than 6 weeks Meds Home Medications and Allergies Home Medications Medication Instructions Recorded Confirmed Type atorvastatin 40 mg tablet 40 mg PO DAILY High cholesterol 11/22/20 02/26/24 History metoclopramide HCl 5 mg tablet 5 mg PO DAILY stomach 11/22/20 02/26/24 History omeprazole 40 mg capsule,delayed 40 mg PO DAILY GERD 11/22/20 02/26/24 History release benzonatate 100 mg capsule 100 mg PO BID PRN cough #10 caps 08/30/23 02/26/24 Rx fluticasone propionate 50 1 spray intranasal DAILY #16 grams 08/30/23 02/26/24 Rx mcg/actuation nasal spray,suspension (Allergy Relief (fluticasone)) tiotropium bromide 2.5 2 inh inhalation DAILY COPD #4 08/30/23 02/26/24 Rx mcg/actuation mist for inhalation grams fluconazole 200 mg tablet 200 mg PO DAILY 7 days #7 tabs 09/05/23 02/26/24 Rx gabapentin 100 mg capsule 100 mg PO TID #90 caps 02/08/24 02/26/24 Rx meloxicam 15 mg tablet 15 mg PO DIRECTED Pain #30 tabs 02/08/24 02/26/24 Rx New Prescriptions to Start Prescriptions: Allergies Allergy/AdvReac Type Severity Reaction Status Date / Time No Known Allergies Allergy Verified 01/22/24 09:30 Assessment and Plan *Assessment and plan (1) Lumbar radiculopathy: Status: Acute Category: Medical Code(s): M54.16 - Radiculopathy, lumbar region (2) Degenerative disc disease, lumbar: Status: Acute Category: Medical Code(s): M51.36 - Other intervertebral disc degeneration, lumbar region Plan Patient has had significant improvement following her lumbar epidural and does not require any additional injection therapy. Patient will return to clinic in 1 month for reevaluation of symptoms and plan of care. Patient has been instructed to contact the clinic with any concerns before the next appointment. Dr. Richards has reviewed this note and agrees with this plan of care. This note was dictated using voice recognition software and make contain errors or omissions.
[2024-03-24 15:38] VITALS: BP 159/81; PULSE 72; RESP 18; O2SAT 97; BMI 26.1
== END 2024-03-24 23:59 | disposition home or self-care (01) ==
LOC: SC.PAIN 14:40
PROVIDERS: PCP Family Medicine; Visit Provider Nurse Practitioner Family
DX: M54.16 Radiculopathy, lumbar region (principal); M51.36 Other intervertebral disc degeneration, lumbar region
CPT/HCPCS: 99212; G0463

== ENCOUNTER 2024-04-03 09:26 | Outpatient (CLI) | payer MEDICARE, SELFPAY ==
--- NOTE | 2024-04-03 09:31 | CT_ITS ---
FINAL REPORT CLINICAL HISTORY: SCREENING current smoker ppd x 50 years COMPARISON: 11/29/2022 FINDINGS: CT CHEST LOW DOSE SCREENING HISTORY: Screening exam for lung cancer. 69-year-old female, Current smoker, 50 pack year smoking history DOSE: CTDIvol: 2.9 mGy, DLP: 107.07 mGy*cm COMPARISON: 11/29/2022. TECHNIQUE: Axial CT without IV contrast administration using low dose protocol. This study was performed with techniques to keep radiation doses as low as reasonably achievable, (ALARA). Individualized dose reduction techniques using automated exposure control or adjustment of mA and/or kV according to the patient's size were employed. FINDINGS: No acute lung disease is present . No pulmonary lesions are seen suspicious for neoplasm. No pleural or pericardial effusion is seen . No adenopathy or mass lesion is present . IMPRESSION: No focal nodule or mass identified. LUNG RADS CATEGORY 1 RECOMMENDATION: 12 month LDCT follow up Reviewed, Interpreted and Dictated by Ace Back MD Transcribed by Peri Ortega Authenticated and [facility]
== END 2024-04-03 23:59 | disposition home or self-care (01) ==
LOC: RAD 09:27
PROVIDERS: PCP Family Medicine; Visit Provider Family Medicine
DX: Z87.891 Personal history of nicotine dependence (principal); Z12.2 Encounter for screening for malignant neoplasm of respiratory organs
CPT/HCPCS: 71271

== ENCOUNTER 2024-05-01 10:14 | Outpatient (POV) | payer MEDICARE, SELFPAY ==
--- NOTE | 2024-05-01 10:48 | A.OFFVIS_ITS ---
[facility] Disclaimer: The information contained in this section may have been updated after the patient was seen, as this information can be updated by other users. Medical History COPD (chronic obstructive pulmonary disease) GERD (gastroesophageal reflux disease) HLD (hyperlipidemia) Surgical History History of colonoscopy No history of previous surgery Family History Other Family history of cancer Social History Smoking Status: Current some day smoker tobacco type: cigarettes (less than one ppd) alcohol intake: never substance use type: denies use current occupational status: other Travel in the last 8 weeks: None household members: family housing: house PM Subjective & Objective Subjective Subjective:: Patient is a pleasant 68-year-old female who presents today for follow-up. Today she rates her pain a 6 out of 10. She denies any new trauma or injury. She does state that she is experiencing worsening pain in her low back primarily on the right side that does go down into her legs. She does describe this as an aching, throbbing sensation with numbness and tingling. Patient does state the pain interferes with her ability perform activities of daily living such as cooking and cleaning. Patient did previously have a lumbar epidural steroid injection of L4-L5 back in February that did provide significant improvement of more than 50% lasting up until the last week or so. Patient does state that she is interested in repeating this injection because it did give significant improvement. Patient does also state at her last visit with her she did get pre scribed some medication and that is asking for refills however she states that prior to that she was on pregabalin and that it seemed to work better without making her feel more loopy and that she does have a preference for that medication. Patient does state that the pregabalin was ordered originally from her PCP Dr. Chambers. Her Chucho has been reviewed and is appropriate. Review of Systems: General: No recent weight changes, no fever, no sleep disturbances Respiratory: No cough, no shortness of air, no recurring pulmonary infections Cardiovascular/peripheral vascular: No chest pain, no palpitations, no edema, no shortness of breath Gastrointestinal: No new onset incontinence, normal bowel movements reported Genitourinary: No new onset incontinence Musculoskeletal: Low back pain, leg pain Psychiatric: [Normal mood/affect] Neurological: [Denies weakness in extremities], [denies balance issues] Pain at rest (0-10 scale): 6 Objective Objective:: Physical Exam: General: Alert and oriented x3, no acute distress, pleasant and cooperative Lungs: Respirations even and unlabored, symmetrical chest expansion Eyes: PERRL Musculoskeletal: Flexion and extension of lumbar [spine] somewhat guarded secondary to pain, [antalgic gait noted] Neurological: Speech clear, no gross sensory deficit Has patient had previous pain injection?: Yes Percent improvement in pain since last injection: 50% Conservative treatment options previously tried: Home exercise plan Length of treatment: Longer than 6 weeks Meds Home Medications and Allergies Home Medications ?Medication ?Instructions ?Recorded ?Confirmed ?Type atorvastatin 40 mg tablet 40 mg PO DAILY High cholesterol 11/22/20 03/24/24 History metoclopramide HCl 5 mg tablet 5 mg PO DAILY stomach 11/22/20 03/24/24 History omeprazole 40 mg capsule,delayed 40 mg PO DAILY GERD 11/22/20 03/24/24 History release benzonatate 100 mg capsule 100 mg PO BID PRN cough #10 caps 08/30/23 03/24/24 Rx fluticasone propionate 50 1 spray intranasal DAILY #16 grams 08/30/23 03/24/24 Rx mcg/actuation nasal spray,suspension (Allergy Relief (fluticasone)) tiotropium bromide 2.5 2 inh inhalation DAILY COPD #4 08/30/23 03/24/24 Rx mcg/actuation mist for inhalation grams fluconazole 200 mg tablet 200 mg PO DAILY 7 days #7 tabs 09/05/23 03/24/24 Rx gabapentin 100 mg capsule 100 mg PO TID #90 caps 02/08/24 03/24/24 Rx meloxicam 15 mg tablet 15 mg PO DIRECTED Pain #30 tabs 02/08/24 03/24/24 Rx New Prescriptions to Start Prescriptions: Allergies Allergy/AdvReac Type Severity Reaction Status Date / Time No Known Allergies Allergy Verified 01/22/24 09:30 Assessment and Plan *Assessment and plan (1) Lumbar radiculopathy: Status: Acute Category: Medical Code(s): M54.16 - Radiculopathy, lumbar region (2) Right leg pain: Status: Acute Category: Medical Code(s): M79.604 - Pain in right leg (3) Lumbar spinal stenosis: Status: Acute Qualifiers: Neurogenic claudication status: with neurogenic claudication Qualified Code(s): M48.062 - Spinal stenosis, lumbar region with neurogenic claudication Category: Medical Code(s): M48.061 - Spinal stenosis, lumbar region without neurogenic claudication (4) Degenerative disc disease, lumbar: Status: Acute Category: Medical Code(s): M51.36 - Other intervertebral disc degeneration, lumbar region Plan Patient is starting to experience worsening pain in her low back and leg along the right side with numbness and tingling. Patient did previously have a lumbar epidural of L4-L5 that did provide more than 50% relief lasting up until the last week or so. I did discuss over the risk and benefits of repeat injection and she would like to Proceed forward with this plan of care. Patient has tried and failed conservative therapy including continued at home stretching exercise for longer than 12 weeks. I will refill the patient's pregabalin 150 mg twice a day and provide a 1 month supply of this medication. Patient will be scheduled for an LESI L4-L5 under fluoroscopy. Patient has been instructed to contact the clinic with any concerns before the next appointment. Dr. Richards has reviewed this note and agrees with this plan of care. This note was dictated using voice recognition software and make contain errors or omissions. All injections are used with Lidocaine or Bupivacaine and Depo Medrol.
[2024-05-01 11:13] VITALS: BP 141/75; PULSE 68; RESP 16; O2SAT 99; BMI 26.1
== END 2024-05-01 23:59 | disposition home or self-care (01) ==
PROVIDERS: PCP Family Medicine; Visit Provider Nurse Practitioner Family
DX: M79.604 Pain in right leg; M48.062 Spinal stenosis, lumbar region with neurogenic claudication; M51.16 Intervertebral disc disorders with radiculopathy, lumbar region; F17.210 Nicotine dependence, cigarettes, uncomplicated; Z73.89 Other problems related to life management difficulty
CPT/HCPCS: 99212; G0463

== ENCOUNTER 2024-05-27 08:07 | Day surgery (SDC) | payer MEDICARE, SELFPAY ==
[2024-05-27 08:36] VITALS: BP 148/82; PULSE 69; RESP 16; TEMP 36.3; O2SAT 97; BMI 26.1
[2024-05-27] MEDS: methylPREDNISolone ACETATE 80MG/ML VIAL 80 MG (08:47)
[2024-05-27 08:48] VITALS: BP 148/75; PULSE 71; RESP 18; O2SAT 94
[2024-05-27 08:49] VITALS: BP 148/75; PULSE 68; RESP 18; O2SAT 94
--- NOTE | 2024-05-27 08:51 | EXP.PAIN.PRO ---
Procedure Date: 05/27/24 Time: 08:40 Anesthesiologist:: Figueroa Saleem CRNA Complications:: None Pre-procedure Diagnosis:: Degenerative disc lumbar spine multilevels. Lumbar radiculopathy. Post-procedure Diagnosis:: Same. Indications for Procedure:: Patient is a pleasant 68-year-old female comes our clinic today for repeat lumbar epidural steroid injection at the L4-5 level. Patient describes low back pain is constant, dull, aching. She also reports bilateral hip and leg radicular symptoms at times. She reports significant improvement terms of the above said symptoms with previous lumbar epidural steroid injection same level. She rates her pain a 6/10. Procedure Details:: Procedure: Lumbar epidural steroid injection under fluoroscopy Informed consent was obtained and the risks and benefits of the procedure were explained to the patient. The patient was taken to the procedure room and noninvasive monitors placed, including noninvasive blood pressure cuff and pulse oximeter. The back was viewed using C-arm Fluoroscopy and prepped using Chloraprep as a cleansing solution and the L4-L5 interspace was palpated. Skin and subcutaneous tissues were anesthetized using lidocaine 1.5% and a 25-gauge needle. After this, an 18-gauge Touhy epidural needle was placed into the L4-L5 interspace and advanced using fluoroscopic guidance and loss of resistance to air until the epidural space was encountered. After confirmation of needle placement in the epidural space, with dye, a solution containing normal saline, 3 mL and Depo-Medrol 80 mg were incrementally injected into the lumbar epidural space. The patient tolerated the procedure well with no complications. The patient was observed in the Pain Clinic and then discharged home neurologically intact. Plan and Disposition:: Patient was discharged without incident
[2024-05-27 09:00] VITALS: BP 139/82; PULSE 60; RESP 18; O2SAT 97
== END 2024-05-27 09:00 | disposition home or self-care (01) ==
PROVIDERS: PCP Family Medicine; Visit Provider Nurse Anesthetist, Certified Registered
DX: M51.15 Intervertebral disc disorders with radiculopathy, thoracolumbar region (principal)
CPT/HCPCS: 62323; J1010

== ENCOUNTER 2024-06-12 09:37 | Outpatient (POV) | payer MEDICARE, SELFPAY ==
--- NOTE | 2024-06-12 10:04 | EXP.PAIN.SOA ---
[facility] Disclaimer: The information contained in this section may have been updated after the patient was seen, as this information can be updated by other users. Medical History COPD (chronic obstructive pulmonary disease) GERD (gastroesophageal reflux disease) HLD (hyperlipidemia) Surgical History History of colonoscopy No history of previous surgery Family History Other Family history of cancer Social History Smoking Status: Current some day smoker tobacco type: cigarettes (less than one ppd) alcohol intake: never substance use type: denies use current occupational status: unemployed Travel in the last 8 weeks: None household members: family housing: house PM Subjective & Objective Subjective Subjective:: Patient is a pleasant 68-year-old female who presents today for follow-up of lumbar epidural steroid injection L4-L5 on 05/27/2024. Today she rates her pain a 0 out of 10. Patient states that she has had at least 99% improvement following this injection and feels like it is still helping. Patient does state that she might just have a tiny bit of problems first thing in the morning however overall she is doing much better. She is prescribed pregabalin from her PCP. Her Chucho has been reviewed and is appropriate. Review of Systems: General: No recent weight changes, no fever, no sleep disturbances Respiratory: No cough, no shortness of air, no recurring pulmonary infections Cardiovascular/peripheral vascular: No chest pain, no palpitations, no edema, no shortness of breath Gastrointestinal: No new onset incontinence, normal bowel movements reported Genitourinary: No new onset incontinence Musculoskeletal: Low back pain Psychiatric: [Normal mood/affect] Neurological: [Denies weakness in extremities], [denies balance issues] Pain at rest (0-10 scale): 0 Objective Objective:: Physical Exam: General: Alert and oriented x3, no acute distress, pleasant and cooperative Lungs: Respirations even and unlabored, symmetrical chest expansion Eyes: PERRL Musculoskeletal: Flexion and extension of lumbar [spine] somewhat guarded secondary to pain, [antalgic gait noted] Neurological: Speech clear, no gross sensory deficit Has patient had previous pain injection?: Yes Percent improvement in pain since last injection: 99% Conservative treatment options previously tried: Home exercise plan Length of treatment: Longer than 12 weeks Meds Home Medications and Allergies Home Medications ?Medication ?Instructions ?Recorded ?Confirmed ?Type atorvastatin 40 mg tablet 40 mg PO DAILY High cholesterol 11/22/20 05/27/24 History metoclopramide HCl 5 mg tablet 5 mg PO DAILY stomach 11/22/20 05/27/24 History omeprazole 40 mg capsule,delayed 40 mg PO DAILY GERD 11/22/20 05/27/24 History release benzonatate 100 mg capsule 100 mg PO BID PRN cough #10 caps 08/30/23 05/27/24 Rx fluticasone propionate 50 1 spray intranasal DAILY #16 grams 08/30/23 05/27/24 Rx mcg/actuation nasal spray,suspension (Allergy Relief (fluticasone)) tiotropium bromide 2.5 2 inh inhalation DAILY COPD #4 08/30/23 05/27/24 Rx mcg/actuation mist for inhalation grams fluconazole 200 mg tablet 200 mg PO DAILY 7 days #7 tabs 09/05/23 05/27/24 Rx gabapentin 100 mg capsule 100 mg PO TID #90 caps 02/08/24 05/27/24 Rx meloxicam 15 mg tablet 15 mg PO DIRECTED Pain #30 tabs 02/08/24 05/27/24 Rx pregabalin 150 mg capsule (Lyrica) 150 mg PO BID #60 caps 05/01/24 05/27/24 Rx New Prescriptions to Start Prescriptions: Allergies Allergy/AdvReac Type Severity Reaction Status Date / Time No Known Allergies Allergy Verified 05/27/24 08:38 Assessment and Plan *Assessment and plan (1) Lumbar spinal stenosis: Status: Acute Qualifiers: Neurogenic claudication status: with neurogenic claudication Qualified Code(s): M48.062 - Spinal stenosis, lumbar region with neurogenic claudication Category: Medical Code(s): M48.061 - Spinal stenosis, lumbar region without neurogenic claudication (2) Lumbar radiculopathy: Status: Acute Category: Medical Code(s): M54.16 - Radiculopathy, lumbar region (3) Degenerative disc disease, lumbar: Status: Acute Category: Medical Code(s): M51.36 - Other intervertebral disc degeneration, lumbar region Plan Patient has had significant improvement and does not require any additional injection therapy at this time. Patient will return to clinic in 2 months for reevaluation of symptoms and plan of care. Patient has been instructed to contact the clinic with any concerns before the next appointment. Dr. Richards has reviewed this note and agrees with this plan of care. This note was dictated using voice recognition software and make contain errors or omissions. All injections are used with Lidocaine or Bupivacaine and Depo Medrol.
[2024-06-12 10:06] VITALS: BP 131/87; PULSE 75; RESP 18; O2SAT 98; BMI 25.7
== END 2024-06-12 23:59 | disposition home or self-care (01) ==
LOC: SC.PAIN 09:38
PROVIDERS: PCP Family Medicine; Visit Provider Nurse Practitioner Family
DX: M48.062 Spinal stenosis, lumbar region with neurogenic claudication (principal); M51.16 Intervertebral disc disorders with radiculopathy, lumbar region; F17.210 Nicotine dependence, cigarettes, uncomplicated
CPT/HCPCS: 99212; G0463

== ENCOUNTER 2024-07-12 11:08 | Emergency (ER) | payer MEDICARE, SELFPAY ==
[2024-07-12 12:28] VITALS: BP 147/78; PULSE 76; RESP 20; TEMP 36.8; O2SAT 98; BMI 25.4
--- NOTE | 2024-07-12 12:41 | EXP.UTC ---
Discharge Plan Disposition Patient Disposition: Home, Self-Care Condition: Good Prescriptions Prescriptions: New fellaztaufujdaf-lvlzczqbr-OW [Bromfed DM] 2-30-10 mg/5 mL syrup 10 ml PO Q4-6H PRN (Reason: cough/sinus) Qty: 200 0RF azithromycin 250 mg tablet See Rx Instructions .ROUTE .COMPLEX Qty: 6 0RF Rx Instructions: For 250 mg dose pack: take 500 mg today (day 1), then 250 mg for 4 days (days 2-5) No Action omeprazole 40 mg capsule,delayed release(DR/EC) 40 mg PO DAILY Patient Comments: TAKE ONE CAPSULE BY MOUTH EVERY DAY atorvastatin 40 mg tablet 40 mg PO DAILY tiotropium bromide 2.5 mcg/actuation mist 2 inh INHALATION DAILY Qty: 4 0RF meloxicam 15 mg tablet 15 mg PO DIRECTED Qty: 30 0RF Referrals Follow up/Referrals: Erik Chambers MD [Primary Care Provider] - See instructions Activity Restrictions/Add. Instructions Additional Instructions/Restrictions: Victoriano medication as prescribed. If symptoms persist or worsen, return to the clinic or go to PCP. May start antibiotics if no improvement in a week. Clinical Impressions Clinical Impression: Upper respiratory tract infection Qualifiers: URI type: unspecified URI Qualified Code(s): J06.9 - Acute upper respiratory infection, unspecified Instructions Patient Instructions: DI for Viral Upper Respiratory Infection -- Adult Print Language Print Language: Syrian Discharge ED Provider: Syeda Hernandez [facility] [place] General Stated complaint: cough, congestion Mode of Arrival: Ambulatory Source of Information: Patient Time Seen by Provider: 07/12/24 12:41 Description of Symptoms (Recalled from Triage Doc. by RN): CONSTANT DRY HACKY COUGH NON PRODUCTIVE, CONGESTION, FATIGUE, LOW GRADE FEVER AT HOME HEENT Symptoms (Recalled from RN notes): No Resp Symptoms (Recalled from RN notes): Yes Skin Symptoms (Recalled from RN notes): No MS Symptoms (Recalled from RN notes): No Functional Status (Recalled from RN notes): WNL History of Present Illness Provider Complaint: Pt reports that she has been sick for the last 4 days with a cough, clear sinus drainage, malaise, and low grade fever. She states that she has used cough drops for her symptoms. Related Data Home Medications ?Medication ?Instructions ?Recorded ?Confirmed atorvastatin 40 mg tablet 40 mg PO DAILY High cholesterol 11/22/20 07/12/24 omeprazole 40 mg capsule,delayed 40 mg PO DAILY GERD 11/22/20 07/12/24 release Previous Rx's ?Medication ?Instructions ?Recorded tiotropium bromide 2.5 2 inh inhalation DAILY COPD #4 08/30/23 mcg/actuation mist for inhalation grams meloxicam 15 mg tablet 15 mg PO DIRECTED Pain #30 tabs 02/08/24 azithromycin 250 mg tablet See Rx Instructions PO .COMPLEX #6 07/12/24 tabs qptnhydhvinuggv-aufsqoqhaqapwmg-XL 10 ml PO Q4-6H PRN cough/sinus 07/12/24 2 mg-30 mg-10 mg/5 mL oral syrup #200 mL (Bromfed DM) Allergies Allergy/AdvReac Type Severity Reaction Status Date / Time No Known Allergies Allergy Verified 05/27/24 08:38 Worker's Comp Is this a Worker's Comp case?: No [facility] Disclaimer: The information contained in this section may have been updated after the patient was seen, as this information can be updated by other users. Medical History COPD (chronic obstructive pulmonary disease) GERD (gastroesophageal reflux disease) HLD (hyperlipidemia) Surgical History History of colonoscopy No history of previous surgery Family History Other Family history of cancer Social History Smoking Status: Current some day smoker tobacco type: cigarettes (less than one ppd) alcohol intake: never substance use type: denies use current occupational status: unemployed Travel in the last 8 weeks: None household members: family housing: house ROS Obtained: Yes All systems reviewed & no additional complaints except as documented Constitutional Constitutional: Reports system reviewed and no additional complaints, except as documented, Reports fatigue, Reports fever(s), Reports headache(s) and Reports malaise Eyes Eyes: Reports system reviewed and no additional complaints, except as documented ENT Ears, Nose, Mouth, and Throat: Reports system reviewed and no additional complaints, except as documented, Reports headache(s), Reports nasal congestion and Reports nasal discharge Cardiovascular Cardiovascular: Reports system reviewed and no additional complaints, except as documented Respiratory Respiratory: Reports system reviewed and no additional complaints, except as documented, Reports cough and Reports non-productive cough Gastrointestinal Gastrointestingal: Reports system reviewed and no additional complaints, except as documented Genitourinary Female Genitourinary: Reports system reviewed and no additional complaints, except as documented Musculoskeletal Musculoskeletal: Reports system reviewed and no additional complaints, except as documented Integumentary/Breasts Skin/Breast: Reports system reviewed and no additional complaints, except as documented Neurologic Neurologic: Reports system reviewed and no additional complaints, except as documented and Reports headache(s) Endocrine Endocrine: Reports system reviewed and no additional complaints, except as documented and Reports fatigue Hematologic/Lymphatic Henatologic/Lymphatic: Reports system reviewed and no additional complaints, except as documented Allergic/Immunologic Allergic/Immunologic: Reports system reviewed and no additional complaints, except as documented Physical Exam General General appearance: alert Comment: ill appearing Head Head exam: atraumatic and normocephalic Eye Eye exam: Present normal appearance ENT ENT exam: Present mucous membranes moist Expanded ENT Exam External ear exam: Present normal external inspection Nose exam: Present sinus tenderness Nasal speculum exam: Bilateral: other (clear drainage) Mouth exam: Present normal external inspection Teeth exam: Present normal inspection Throat exam: Present normal inspection Neck Neck exam: Present normal inspection Chest Chest inspection: Present normal inspection and symmetric chest wall rise Respiratory Respiratory exam: Present other (course sounds throughout) Cardiovascular Cardiovascular exam: Present regular rate and normal rhythm Abdominal Exam Abdominal exam: Present soft Extremities Exam Extremities exam: Present normal inspection Back Exam Back exam: Present normal inspection Neurological Exam Neurological exam: Present alert and oriented X3 Psychiatric Psychiatric exam: Present normal affect and normal mood Skin Skin exam: Present warm, dry and intact Lymphatic Lymphatic Findings: no adenopathy Medical Decision Making Medical Records Screening: Per USPSTF and CDC recommendations, given the prevalence of disease in our region, it is our hospital?s policy to screen for HIV and viral Hepatitis for all patients aged 18 and over and those with ongoing risk factors. Chucho Inquiry Pt receiving controlled substance: No Chucho was queried for this patient: No Vital Signs: 07/12/24 12:28 Temperature 98.2 F Temperature Source Oral Pulse Rate [Left Radial] 76 Respiratory Rate 20 Blood Pressure [Left Arm] 147/78 H Blood Pressure Mean [Left Arm] 101 02 Sat by Pulse Oximetry 98
[2024-07-12 13:30] VITALS: BP 147/78; PULSE 76; RESP 20; TEMP 36.8
== END 2024-07-12 13:31 | disposition home or self-care (01) ==
PROVIDERS: Emergency Provider Nurse Practitioner Family; PCP Family Medicine
DX: J06.9 Acute upper respiratory infection, unspecified (principal)
CPT/HCPCS: 99213; G0381

== ENCOUNTER 2024-08-13 09:42 | Outpatient (POV) | payer MEDICARE, SELFPAY ==
--- NOTE | 2024-08-13 10:06 | A.OFFVIS_ITS ---
[facility] Disclaimer: The information contained in this section may have been updated after the patient was seen, as this information can be updated by other users. Medical History COPD (chronic obstructive pulmonary disease) GERD (gastroesophageal reflux disease) HLD (hyperlipidemia) Surgical History History of colonoscopy No history of previous surgery Family History Other Family history of cancer Social History Smoking Status: Current some day smoker tobacco type: cigarettes (less than one ppd) alcohol intake: never substance use type: denies use current occupational status: unemployed Travel in the last 8 weeks: None household members: family housing: house PM Subjective & Objective Subjective Subjective:: Patient is a pleasant 68-year-old female who presents today for 2-month follow- up. Today she rates her pain a 0 out of 10. Patient started that she is still getting significant relief following her lumbar epidural that was done back on May 27, 2024. We did go in at the L4-L5 level. Patient states she is continue to have improved function. Her Chucho has been reviewed and is appropriate. Review of Systems: General: No recent weight changes, no fever, no sleep disturbances Respiratory: No cough, no shortness of air, no recurring pulmonary infections Cardiovascular/peripheral vascular: No chest pain, no palpitations, no edema, no shortness of breath Gastrointestinal: No new onset incontinence, normal bowel movements reported Genitourinary: No new onset incontinence Musculoskeletal: Low back pain Psychiatric: [Normal mood/affect] Neurological: [Denies weakness in extremities], [denies balance issues] Pain at rest (0-10 scale): 0 Objective Objective:: Physical Exam: General: Alert and oriented x3, no acute distress, pleasant and cooperative Lungs: Respirations even and unlabored, symmetrical chest expansion Eyes: PERRL Musculoskeletal: Flexion and extension of lumbar spine within normal limits Neurological: Speech clear, no gross sensory deficit Has patient had previous pain injection?: No Conservative treatment options previously tried: Home exercise plan Length of treatment: Longer than 12 weeks Meds Home Medications and Allergies Home Medications ?Medication ?Instructions ?Recorded ?Confirmed ?Type atorvastatin 40 mg tablet 40 mg PO DAILY High cholesterol 11/22/20 07/12/24 Hist ory omeprazole 40 mg capsule,delayed 40 mg PO DAILY GERD 11/22/20 07/12/24 History release tiotropium bromide 2.5 2 inh inhalation DAILY COPD #4 08/30/23 07/12/24 Rx mcg/actuation mist for inhalation grams meloxicam 15 mg tablet 15 mg PO DIRECTED Pain #30 tabs 02/08/24 07/12/24 Rx azithromycin 250 mg tablet See Rx Instructions PO .COMPLEX #6 07/12/24 Rx tabs uucytovjsosnlxl-fgpuwdkwrzqunml-HE 10 ml PO Q4-6H PRN cough/sinus 07/12/24 Rx 2 mg-30 mg-10 mg/5 mL oral syrup #200 mL (Bromfed DM) New Prescriptions to Start Prescriptions: Allergies Allergy/AdvReac Type Severity Reaction Status Date / Time No Known Allergies Allergy Verified 05/27/24 08:38 Assessment and Plan *Assessment and plan (1) Lumbar radiculopathy: Status: Acute Category: Medical Code(s): M54.16 - Radiculopathy, lumbar region (2) Degenerative disc disease, lumbar: Status: Acute Category: Medical Code(s): M51.36 - Other intervertebral disc degeneration, lumbar region Plan Patient continues to get significant relief following her lumbar epidural in May and does not require any additional interventions. Patient will return to clinic in 4 months for reevaluation of symptoms and plan of care. Patient has been instructed to contact the clinic with any concerns before the next appointment. Dr. Richards has reviewed this note and agrees with this plan of care. This note was dictated using voice recognition software and make contain errors or omissions. All injections are used with Lidocaine or Bupivacaine and Depo Medrol.
[2024-08-13 10:09] VITALS: BP 157/87; PULSE 67; RESP 14; O2SAT 92; BMI 27.4
== END 2024-08-13 23:59 | disposition home or self-care (01) ==
LOC: SC.PAIN 09:43
PROVIDERS: PCP Family Medicine; Visit Provider Nurse Practitioner Family
DX: M51.16 Intervertebral disc disorders with radiculopathy, lumbar region (principal)
CPT/HCPCS: 99212; G0463

== ENCOUNTER 2024-12-15 10:23 | Outpatient (POV) | payer MEDICARE, SELFPAY ==
--- NOTE | 2024-12-15 10:32 | A.OFFVIS_ITS ---
[facility] Disclaimer: The information contained in this section may have been updated after the patient was seen, as this information can be updated by other users. Medical History COPD (chronic obstructive pulmonary disease) GERD (gastroesophageal reflux disease) HLD (hyperlipidemia) Surgical History History of colonoscopy No history of previous surgery Family History Other Family history of cancer Social History Smoking Status: Current some day smoker tobacco type: cigarettes (less than one ppd) alcohol intake: never substance use type: denies use current occupational status: other Travel in the last 8 weeks: None household members: family housing: house Have you lived/traveled outside US in past 30 days?: No Contact w/someone who lives/traveled outside US past 30 days?: No Exposure to someone with infectious disease in past 14 days?: No Do you have a fever (greater than 100.4 F or 38 C)?: No Have you tested positive for COVID-19: No Exposed to someone with COVID-19 in past 14 days?: No Do you have a sore throat?: No Do you have a cough?: No Do you have any weakness?: No Do you have any diarrhea?: No Are you experiencing any unusual bleeding?: No Do you have any muscle aches/pain?: No Do you have any abdominal pain?: No Are you experiencing loss of taste or smell?: No PM Subjective & Objective Subjective Subjective:: Patient is a pleasant 69-year-old female who presents today for 4-month follow- up. Today she rates her pain a 0 out of 10. Patient did previously have her last lumbar epidural of L4-L5 in May 2024 and has done remarkably well since then. She does state that she did have a fall a couple of months ago however it was nothing significant and she was sore a couple of days but then went back to her baseline. Patient states that she still feels that the last epidural has continued to provide significant relief.Patient is managed with pregabalin 150 mg twice a day from our office. She states that she is actually not even needed to take this medication. She states that she is really only taking meloxicam daily and feels like this has helped with some of her daily aches and pains. Her Chucho has been reviewed and is appropriate. Review of Systems: General: No recent weight changes, no fever, no sleep disturbances Respiratory: No cough, no shortness of air, no recurring pulmonary infections Cardiovascular/peripheral vascular: No chest pain, no palpitations, no edema, no shortness of breath Gastrointestinal: No new onset incontinence, normal bowel movements reported Genitourinary: No new onset incontinence Musculoskeletal: Low back pain Psychiatric: [Normal mood/affect] Neurological: [Denies weakness in extremities], [denies balance issues] Pain at rest (0-10 scale): 0 Objective Objective:: Physical Exam: General: Alert and oriented x3, no acute distress, pleasant and cooperative Lungs: Respirations even and unlabored, symmetrical chest expansion Eyes: PERRL Musculoskeletal: Flexion and extension of lumbar [spine] within normal limits Neurological: Speech clear, no gross sensory deficit Has patient had previous pain injection?: No Conservative treatment options previously tried: Home exercise plan Length of treatment: Longer than 12 weeks Meds Home Medications and Allergies Home Medications ?Medication ?Instructions ?Recorded ?Confirmed ?Type atorvastatin 40 mg tablet 40 mg PO DAILY High cholesterol 11/22/20 08/13/24 History omeprazole 40 mg capsule,delayed 40 mg PO DAILY GERD 11/22/20 08/13/24 History release tiotropium bromide 2.5 2 inh inhalation DAILY COPD #4 08/30/23 08/13/24 Rx mcg/actuation mist for inhalation grams meloxicam 15 mg tablet 15 mg PO DIRECTED Pain #30 tabs 02/08/24 08/13/24 Rx azithromycin 250 mg tablet See Rx Instructions PO .COMPLEX #6 07/12/24 08/13/24 Rx tabs dtevkgnmhkhywsy-wmgpghrrywsqusq-WN 10 ml PO Q4-6H PRN cough/sinus 07/12/24 08/13/24 Rx 2 mg-30 mg-10 mg/5 mL oral syrup #200 mL (Bromfed DM) New Prescriptions to Start Prescriptions: Allergies Allergy/AdvReac Type Severity Reaction Status Date / Time No Known Allergies Allergy Verified 05/27/24 08:38 Assessment and Plan *Assessment and plan (1) Lumbar radiculopathy: Status: Acute Category: Medical Code(s): M54.16 - Radiculopathy, lumbar region (2) Degenerative disc disease, lumbar: Status: Acute Category: Medical Code(s): M51.369 - Other intervertebral disc degeneration, lumbar region without mention of lumbar back pain or lower extremity pain Plan Patient has continued to do remarkable with her epidural in May of L4-L5 and does not need any additional injection therapy at this time. Patient will return to clinic in 6 months. Patient has been instructed to contact the clinic with any concerns before the next appointment. Dr. Richards has reviewed this note and agrees with this plan of care. This note was dictated using voice recognition software and make contain errors or omissions. All injections are used with Lidocaine, Bupivacaine and Depo Medrol. Occasionally urine drug screen is needed to verify patient's compliance with our office pain contract. This is ordered based off specific treatments related to chronic pain with the potential to abuse certain medications.
[2024-12-15 11:33] VITALS: BP 149/72; BP 152/65; PULSE 82; RESP 14; O2SAT 97; BMI 24.9
== END 2024-12-15 23:59 | disposition home or self-care (01) ==
LOC: SC.PAIN 10:24
PROVIDERS: PCP Family Medicine; Visit Provider Nurse Practitioner Family
DX: M51.16 Intervertebral disc disorders with radiculopathy, lumbar region (principal); F17.210 Nicotine dependence, cigarettes, uncomplicated
CPT/HCPCS: 99212; G0463

== ENCOUNTER 2025-04-16 08:52 | Outpatient (CLI) | payer MEDICARE, SELFPAY ==
--- OUTSIDE RECORDS SUMMARY | 2024-08-27 07:15 | XMS_ITS ---
[facility] [address] [place] [id number] Care Team Providers Care Account Advisor Name Role Phone ReyesYanErik Primary Care Provider [phone] Allergies No Known Allergies Results Component Value Reference Range Notes CBC Fingerstick (in house) Reviewed date:08/27/2024 12:08:09 PM Interpretation: Performing Lab: Notes/Report: wbc 11.3 3.5 - 10 lym 26.1% 15 - 50 mid 5.8% 2 - 15 gran 68.1% 35 - 80 rbc 4.57 3.5 - 5.5 hgb 14.5 11.5 - 16.5 hct 43.3 35 - 55 mcv 94.7 75 - 100 mch 31.7 25 - 35 mchc 33.4 31 - 38 plat 188 100 - 400 REASON FOR VISIT cough congestion Medications Medication SIG (Take, Route, Frequency, Duration) Notes Start Date End Date Status Pregabalin 150 MG 1 capsule Orally Twi ce a day; Duration: 30 day(s) 02/08/2024 Active Spiriva Respimat 2.5 MCG/ACT 2 puffs Inh alation Once a day; Duration: 90 days Active Zithromax Z-Darci 250 MG as directed Orall y once daily; Duration: 5 day(s) 08/27/2024 Active Meloxicam 15 mg TAKE ONE TABLET BY M OUTH EVERY DAY --TAKE WITH FOOD--; Duration: 90 Active Metoclopramide HCl 5 MG 1 tab(s) orally 4 times a day (before meals and at bedtime); Duration: 90 days Active Atorvastatin Calcium 40 MG 1 tab(s) oral ly once a day (at bedtime); Duration: 90 days Active Omeprazole 40 MG 1 capsule 1/2 to 1 h our before morning meal Orally Once a day; Duration: 30 day(s) Active Vital Signs Blood pressure systolic 136 mm Hg 08/27/20 24 Blood pressure diastolic 74 mm Hg 024 Heart Rate 79 /min 08/27/2024 Height 63 in 08/27/2024 Weight 150 lbs 08/27/2024 BMI 26.57 kg/m2 08/27/2024 Encounters Encounter Location Date Provider Diagnosis [facility] [address] [facility] [address] [facility] [address] [place] [id number] 08/27/2024 Erik Chabmers Acute cough R 05.1 Assessments Encounter Date Diagnosis (ICD Code) Assessment Notes Treatment Notes Treatment Clinical Notes Section Notes 08/27/2024 Acute cough (ICD-10 - R05.1) Plan Of Treatment Medication Medication Name Sig Start Date Stop Date Notes Zithromax Z-Darci 250 MG as directed Orall y once daily; Duration: 5 day(s) 08/27/2024 Next Appt Details Follow Up: as scheduled, Cristina son: Provider Name:Erik Sandoval ry, 10/05/2025 10:45:00 AM, [address] [facility] [address] [facility], [address], [place], [id number], Progress Notes * BISHNU CORNELL LDOB: [birth year] (69 yo F)Acc No.[id number]:08/27/2024 Progress Notes Patient: BISHNU OAKLEY Provider: Sameer Chambers M.D. :1955 A ge:68 Y S ex:Female Date:08/27/2024 Address:[address] [place], [place] [phone] Subjective: * Chief Complaints: * 1 . Cough congestion. * HPI: E NT/respiratory: 68 year old female presents with c/o cough P t complains of mostly dry without any sputum production for a couple weeks. Pt states she is tired but has not had any other symptoms. Denies : Fever. D enies : body aches. * ROS: D ERMATOLOGY: no R efrain. n o H karrie. G ASTROENTEROLOGY: no N ausea. n o V omiting. n o D iarrhea.? U ROLOGY: no D ifficulty urinating. n o B lood in urine. * Medical History: E sophageal Reflux, Hyperlipidemia, Tobacco Abuse, 40 Year Smoking History as of 2015, Chronic RT Wrist Pain, COPD, Lumbar facet arthropathy, Lumbar Disc Disease, Sciatica, s/p pain management eval in 2023 and epidural injections. * Surgical History: P artial Hysterectomy , D&C , BTL , Broken Wrist 10/2015, Bioposy of the Right Breast 08/10/2023. * Hospitalization/Major Diagno stic Procedure: E ncephalitis , Mumps , Childbirth . * Family History: F ather: alive. M other: alive. 1 brother(s) , 2 sister(s) . 1 son(s) , 1 daughter(s) . . * Social History: C URRENT TOBACCO USE S moking Status: Patient does smoke, packs per day: 1. C affeine: yes, frequency:. Home smoke detector use: yes. Marital Status: . Past smoking status: yes, PPD:1 ppd , years: started at age 18 ,determination:. * Medications: T aking Omeprazole 40 MG Capsule Delayed Release 1 capsule 1/2 to 1 hour before morning meal Orally Once a day , Taking Atorvastatin Calcium 40 MG Tablet 1 tab(s) orally once a day (at bedtime) , Taking Metoclopramide HCl 5 MG Tablet 1 tab(s) orally 4 times a day (before meals and at bedtime) , Taking Meloxicam 15 mg Tablet TAKE ONE TABLET BY MOUTH EVERY DAY --TAKE WITH FOOD-- , Taking Pregabalin 150 MG Capsule 1 capsule Orally Twice a day , Taking Spiriva Respimat 2.5 MCG/ACT Aerosol Solution 2 puffs Inhalation Once a day , Discontinued Promethazine-DM 6.25-15 MG/5ML Syrup 5 mL as needed Orally every 6 hrs , Discontinued Cefdinir 300 MG Capsule 1 cap(s) Orally Two times a day , Medication List reviewed and reconciled with the patient * Allergies: N .K.D.A. Objective: * Vitals: W t:150, Temp:98.3, BP:136/74, HR:79, O2 Sat:96% on RA, Nurse:ela, Ht: 63, BMI:26.57. * Examination: E NT/Respiratory: General Appearance: N AD. E yes: P ERRLA, sclera clear. O ral cavity : erythema without exudate on pharynx. N rk : n o cervical lymphadenopathy. H eart : R RR, normal S1 S2. L ungs: c lear to auscultation bilaterally. Assessment: * Assessment: 1. A cute cough - R05.1 (Primary) Plan: * Treatment: Value Reference Range w bc 11.3 3.5 - 10 * l ym 26.1% 15 - 50 * m id 5.8% 2 - 15 * g ran 68.1% 35 - 80 * r bc 4.57 3.5 - 5.5 * h gb 14.5 11.5 - 16.5 * h ct 43.3 35 - 55 * m cv 94.7 75 - 100 * m ch 31.7 25 - 35 * m chc 33.4 31 - 38 * p lat 188 100 - 400 * [place] Sheikh 08/27/2024 12:05: 46 PM > , Provider reviewed results while patient in office. * Procedure Codes: G 2211 Complex e/[place], [id number] [place], [id number] CAPILLARY BLOOD DRAW, 43736 CBC WITH AUTO DIFF * Follow Up: a s scheduled * Images: Billing Information: * Visit Code: 33415 Office Visit, Est Pt., Level 3. * Procedure Codes: G2211 Complex e/[place]. [address] [place]. [address] CAPILLARY BLOOD DRAW. 62338 CBC WITH AUTO DIFF. * Electronic signature of Elsie Chambers MD on 04/16/2025 at 08:54 AM EDT Sign off status: Pending * Provider: Sameer Chambers M.D. Date: 10/28/2023 Generated for Catrachito mancuso/Ciro/Daviditting on: 0 04/16/2025 08:54 AM EDT History and Physical Notes * HPI (History of Present Illness) Category Sub-Category Detail Notes Category Not es ENT/respiratory cough Pt complains of mostly dry without any sputum production for a couple weeks. Pt states she is tired but has not had any other symptoms Fever body aches Examination Category Sub-Category Detail Notes Category Not es ENT/Respiratory Oral cavity : erythema without exudate on pharynx Neck : no cervical lymphade nopathy Heart : RRR, normal S1 S2 Lungs: clear to auscultatio n bilaterally General Appearance: NAD Eyes: PERRLA, sclera clear
--- OUTSIDE RECORDS SUMMARY | 2024-09-11 05:15 | XMS_ITS ---
Author Organization [facility] Address [address] [place] [id number] Care Team Providers Care Play Writer Name Role Phone MobileYan millsian Primary Care Provider [phone] Allergies No Known Allergies Results Component Value Reference Range Notes P-CBC With Platelet And Diff erential Reviewed date:09/12/2024 03:24:33 PM Interpretation:Normal Performing Lab: Notes/Report: Test performed by [employer] [address] [place] [address] , [address], [place] [address] Manuelito Johnson MD, [employer] Advisor CLIA: [id number] WBC 10.8 3.8-11.5 K/uL Red Blood Cell Count (RBC) 4.77 3.60-5.30 M/mm 3 Hemoglobin (Hgb) 15.1 11.5-15.5 gm/dL Hematocrit (HCT) 45.0 35.2-46.4 % MCV 94.3 79.0-99.0 fL MCH 31.7 26.9-35.0 pg MCHC 33.6 30.4-34.8 g/dL RDW 42.7 38.6-53.8 fL Platelet Count 265 137-397 K/cumm Neutrophils Automated 69.5 41.0-77.0 % Lymphocytes Automated 18.8 14.0-48.0 % Monocytes Automated 7.1 4.0-13.0 % Eosinophils Automated 3.4 0.0-8.0 % Basophils Automated 0.6 0.0-1.5 % Immature Granulocyte Automated 0.6 0.0-1.0 % P-Vitamin D 25-Hydroxy Reviewed date:09/12/2024 03:24:33 PM Interpretation:Normal Performing Lab: Notes/Report: Test performed by [facility] [address] [place] [address] , [address], [place] [address] Manuelito Johnson MD, [employer] Advisor CLIA: [id number] Vitamin D 25-Hydroxy 56.5 30.0-100.0 ng/mL Interpretation of Vitamin D 25 [place]: < 20 ng/mL - Deficiency 20 - 29 ng/mL - Insufficiency 30 - 100 ng/mL - Sufficiency > 100 ng/mL - Super-therapeutic- toxicity may occur above this level. Clinical correlation required. REASON FOR VISIT 6 months Medications Medication SIG (Take, Route, Frequency, Duration) Notes Start Date End Date Status Meloxicam 15 mg TAKE ONE TABLET BY M OUTH EVERY DAY --TAKE WITH FOOD--; Duration: 90 Active Pregabalin 150 MG 1 capsule Orally Twi ce a day; Duration: 30 day(s) 02/08/2024 Active Breztri Aerosphere 160-9-4.8 MCG/ACT 2 puffs Inhalation Twice a day 09/11/2024 Active Omeprazole 40 MG 1 capsule 1/2 to 1 h our before morning meal Orally Once a day; Duration: 30 day(s) Active Metoclopramide HCl 5 MG 1 tab(s) orally 4 times a day (before meals and at bedtime); Duration: 90 days Active Atorvastatin Calcium 40 MG 1 tab(s) oral ly once a day (at bedtime) Active Vital Signs Blood pressure systolic 130 mm Hg 09/11/19 25 Blood pressure diastolic 74 mm Hg 025 Heart Rate 68 /min 09/11/2024 Height 63 in 09/11/2024 Weight 149.8 lbs 09/11/2024 BMI 26.53 kg/m2 09/11/2024 Encounters Encounter Location Date Provider Diagnosis [facility] [address] [facility] [address] [place] [id number] 09/11/2024 Erik Mobile Chronic cough R05.3 ; Chronic obstructive pulmonary disease, unspecified COPD type J44.9 ; Vitamin D deficiency E55.9 and Mixed hyperlipidemia E78.2 Assessments Encounter Date Diagnosis (ICD Code) Assessment Notes Treatment Notes Treatment Clinical Notes Section Notes 09/11/2024 Chronic cough (ICD-10 - R05.3) 09/11/2024 Chronic obstructive pulmonary disease, unspecified COPD type (ICD-10 - J44.9) 09/11/2024 Vitamin D deficiency (ICD-10 - E55.9) 09/11/2024 Mixed hyperlipidemia (ICD-10 - E78.2) Plan Of Treatment Medication Medication Name Sig Start Date Stop Date Notes Spiriva Respimat 2.5 MCG/ACT 2 puffs Inh alation Once a day Breztri Aerosphere 160-9-4.8 MCG/ACT 2 puffs Inhalation Twice a day 09/11/2024 Atorvastatin Calcium 40 MG 1 tab(s) oral ly once a day (at bedtime) Next Appt Details Follow Up: via phone to repo rt progress, 6 Months, Reason: Provider Name:Erik Sandoval , 10/05/2025 10:45:00 AM, [address] [facility] [address] [facility], [address], [place], [place], [id number], Progress Notes * BISHNU CORNELL LDOB: (69 yo F)Acc No.[id number]:09/11/2024 Progress Notes Patient: Genoveva PRESTON BISHNU L Provider: Sameer Chambers M.D. :1955 A ge:69 Y S ex:Female Date:09/11/2024 Address:[address] [place], [place] [id number] Subjective: * Chief Complaints: * 1 . 6 months. * HPI: C ardiology: 69 year old female presents with c/o Hyperlipidemia P t here for 6 mo f/u, pt is fasting today . Pt states that she is doing well and does not have any concerns . * ROS: D ERMATOLOGY: no R efrain. n o H karrie. G ASTROENTEROLOGY: no N ausea. n o V omiting. U ROLOGY: no D ifficulty urinating. n [...] puffs Inhalation Once a day , Discontinued Zithromax Z-Darci 250 MG Tablet as directed Orally once daily , Medication List reviewed and reconciled with the patient * Allergies: N .K.D.A. Objective: * Vitals: W t:149.8, Temp:98.0, BP:130/74, HR:68, Nurse:ela, Ht: 63, BMI:26.53. * Examination: G eneral Examination: General Appearance: N AD. H eart: R SR. L ungs:?clear to auscultation. P eripheral pulses: n ormal (2+) bilaterally. E xtremities:?no leg edema. Assessment: * Assessment: 1. C hronic cough - R05.3 (Primary) 2 . C hronic obstructive pulmonary disease, unspecified COPD type - J44.9 3 . V itamin D deficiency - E55.9 ?4. M ixed hyperlipidemia - E78.2 Plan: * Treatment: Value Reference Range B asophils Automated 0.6 0.0-1.5 - % * E osinophils Automated 3.4 0.0-8.0 - % * H ematocrit (HCT) 45.0 35.2-46.4 - % * H emoglobin (Hgb) 15.1 11.5-15.5 - gm/dL * I mmature Granulocyte Automated 0.6 0.0-1.0 - % * L ymphocytes Automated 18.8 14.0-48.0 - % * M CH 31.7 26.9-35.0 - pg * M CHC 33.6 30.4-34.8 - g/dL * M CV 94.3 79.0-99.0 - fL * M onocytes Automated 7.1 4.0-13.0 - % * P latelet Count 265 137-397 - K/cumm * R ed Blood Cell Count (RBC) 4.77 3.60-5.30 - M/ mm3 * R DW 42.7 38.6-53.8 - fL * N eutrophils Automated 69.5 41.0-77.0 - % * W BC 10.8 3.8-11.5 - K/uL * [place] Sheikh 09/12/2024 3:23:50 PM > Pt informed 2.?Chronic obstructive pulmonary disease, unspecified COPD type? Stop Spiriva Respimat Aerosol Solution, 2.5 MCG/ACT, 2 puffs, Inhalation, Once a day;?Start Breztri Aerosphere Aerosol, 160-9-4.8 MCG/ACT, 2 puffs, Inhalation, Twice a day.??3.?Vitamin D deficiency?LAB: P-Vitamin D 25-Hydroxy (Collection Date & Time - 09/11/2024 08:46 AM)? Normal* Value Reference Range V itamin D 25-Hydroxy 56.5 30.0-100.0 - ng/mL * Inidana Sheikh 09/12/2024 3:23:50 PM > Pt informed 4.?Mixed hyperlipidemia? Continue Atorvastatin Calcium Tablet, 40 MG, 1 tab(s), orally, once a day (at bedtime).?? * Procedure Codes: G 2211 Complex e/m visit add on * Follow Up: v ia phone to report progress, 6 Months * Images: Billing Information: * Visit Code: 15567 Office Visit, Est Pt., Level 4. * Procedure Codes: G2211 Complex e/m visit add on. * Electronic signature of Elsie Chambers MD on 04/16/2025 at 08:55 AM EDT Sign off status: Pending * Provider: Sameer Chambers M.D. Date: 0 09/11/2024 Generated for Catrachito mancuso/Ciro/Rakeshransmitting on: 0 04/16/2025 08:55 AM EDT History and Physical Notes * HPI (History of Present Illness) Category Sub-Category Detail Notes Category Not es Cardiology Hyperlipidemia Pt here for 6 mo f/u, pt is fasting today . Pt states that she is doing well and does not have any concerns Examination Category Sub-Category Detail Notes Category Not es General Examination Heart: RSR Lungs: clear to auscultatio n Extremities: no leg edema General Appearance: NAD Peripheral pulses: normal (2+) bilatera lly
--- OUTSIDE RECORDS SUMMARY | 2025-03-09 09:57 | XMS_ITS | Encounter Summary ---
Author Organization [facility] Address [address] [place] [address] Care Team Providers Care Chaser Tar Name Role Phone Erik Chambers MD Primary Care Provider + [phone] Reason for Referral * Diagnostic Imaging (Routine) - Closed Specialty Diagnoses / Procedures Referred By Khanh melendrez Referred To Contact Radiology Diagnoses Visit for screening mammogram Procedures Mammo Screening Digital Tomosynthesis Bilateral With CAD Brionna [place] MD [address] [place] [address] Phone: tel: fax: Referral ID Status Reason Start Date Expiration Date Visits Re quested Visits Authorized [id number] Closed 10/20/2024 10/20/2025 1 1 Reason for Visit * Diagnostic Imaging (Routine) - Closed Specialty Diagnoses / Procedures Referred By Khanh melendrez Referred To Contact Radiology Diagnoses Visit for screening mammogram Procedures Mammo Screening Digital Tomosynthesis Bilateral With CAD Brionna [place] MD [address] [place] [address] Phone: tel: fax: Referral ID Status Reason Start Date Expiration Date Visits Re quested Visits Authorized [id number] Closed 10/20/2024 10/20/2025 1 1 Encounter Details Date Type Department Care Team (Late st Contact Info) Description 03/09/2025 9:57 AM EDT - 03/09/2025 11:59 PM EDT Hospital Encounter [facility] [address] [facility] [address] [place] [address] Brionna [place] MD [address] [facility] [address] [place] [id number] Visit for screening mammogram Discharge Disposition: Home or Self Care Social History Tobacco Use Types Packs/Day Years Used Date Smoking Tobacco: Never Assessed Comments No Sex and Gender Information Value Date Recorded Sex Assigned at Not on file Legal Sex Female 2:49 PM EDT Gender Identity Not on file Sexual Orientation Not on file documented as of this encounter Medications at Time of Discharge traMADol (ULTRAM) 50 MG tablet Take 1 tablet by mouth Every 6 (Six) Hours As Needed. 7 tablet 08/10/2023 12:34 PM EST 08/10/2023 documented as of this encounter Plan of Treatment Not on file documented as of this encounter Procedures Procedure Name Priority Date/Time Associated Diagnosis Comments MAMMO SCREENING DIGITAL TOMOSYNTHESIS BILATERAL W CAD Routine 03/09/2025 10:45 AM EDT Visit for screening mammogram documented in this encounter Results * Mammo Screening Digital Tomosynthesis Bilateral With CAD (03/09/2025 10:45 AM EDT) Anatomical Region Laterality Modality Breast N/A Mammography 03/11/2025 1:38 PM EDT Impressions 03/11/2025 1:41 PM EDT No suspicious abnormality identified. OVERALL ASSESSMENT: ACR BI-RADS CATEGORY: 1, NEGATIVE: Recommend continued routine annual screening mammogram. The standard false-negative rate of mammography is between 10% and 25%. Complex patterns or increased breast density will markedly elevate the false-negative rate of mammography. A letter, in lay terminology, with the results of this exam will be mailed to the patient. 03/11/2025 1:41 PM by Loretta Cotter MD on Narrative 03/11/2025 1:41 PM EDT BILATERAL DIGITAL SCREENING MAMMOGRAM WITH TOMOSYNTHESIS CLINICAL INDICATION: Screening mammogram. TECHNIQUE: Bilateral low dose full field digital breast tomosynthesis imaging was performed. CAD was utilized. COMPARISON: Priors dating back to 07/10/2019. FINDINGS: There are scattered areas of fibroglandular density. RIGHT BREAST: No suspicious masses, calcifications, or areas of distortion are seen. LEFT BREAST: No suspicious masses, calcifications, or areas of distortion are seen. us Brionna [place] MD IMG MAMMOGRAPHY ORDERABLE S Final Result documented in this encounter Visit Diagnoses Diagnosis Visit for screening mammogram documented in this encounter Care Teams Chaser Tar Relationship Specialty Start Date End Date Erik Chambers MD [address] [facility] [address] [facility] [address] [place] [id number] PCP - General Family Medicine 03/27/23 documented as of this encounter
--- OUTSIDE RECORDS SUMMARY | 2025-04-02 07:15 | XMS_ITS ---
Author Organization [facility] Address [address] [place] [id number] Care Team Providers Care Printed Circuit Board Panels Plater Name Role Phone Reyes Erik Primary Care Provider [phone] Allergies No Known Allergies Results Component Value Reference Range Notes CBC Venipuncture (in house) Reviewed date:04/02/2025 11:26:04 PM Interpretation: Performing Lab: Notes/Report: wbc 8.3 3.5 - 10 lymph 20.9% 15 - 50 mid 5.5% 2 - 15 gran 4.83 35 - 80 rbc 4.83 3.5 - 5.5 hgb 15.0 11.5 - 16.5 hct 44.5 35 - 55 mcv 92.2 75 - 100 mch 31.1 25 - 35 mchc 33.7 31 - 38 platlet 256 100 - 400 P-Comprehensive Metabolic Pa alejandrina (CMP) Reviewed date:04/03/2025 10:21:09 AM Interpretation:alk phos 148 Performing Lab: Notes/Report: Test performed by [facility], [facility] Formerly named [facility] , [address], [place] [address] Manuelito Johnson MD, Pickling Operator CLIA: [id number] Sodium 142 135-145 mmol/L Potassium 3.7 3.5-5.3 mmol/L Chloride 104 97-108 mmol/L CO2 27 20-32 mmol/L Glucose 85 65-99 mg/dL BUN 8 8-23 mg/dL Creatinine 0.74 0.50-1.00 mg/dL Calcium 9.6 8.6-10.4 mg/dL eGFR by Creatinine 88 >59 mL/min/1.73m2 Protein 6.8 6.0-8.3 g/dL Albumin 4.4 3.5-5.3 g/dL Alkaline Phosphatase 148 35-121 IU/L ALT (SGPT) 20 <5-47 IU/L AST (SGOT) 26 <5-40 IU/L Bilirubin, Total 0.7 <0.2-1.2 mg/dL A/G Ratio 1.8 1.1-2.5 P-Lipid Panel Reviewed date:04/03/2025 10:21:09 AM Interpretation:trigs 252, hdl 38 Performing Lab: Notes/Report: Test performed by [facility], [address] , [address], [place] [address] Manuelito Johnson MD, Pickling Operator CLIA: [id number] Cholesterol 164 <200 mg/dL Triglycerides 252 <150 mg/dL HDL Cholesterol 38 >39 mg/dL Cholesterol / HDL Ratio 4.32 0.00-4.44 Ratio Non-HDL Cholesterol 126 <130 mg/dL LDL Cholesterol (Calculation) 76 <130 mg/dL LDL Cholesterol Levels* Less than 100 mg/dL Optimal 100 to 129 mg/dL Near Optimal/ Above Optimal 130 to 159 mg/dL Borderline High 160 to 189 mg/dL High 190 mg/dL and above Very High * Categories as recommended by the 2004 ATPIII guidelines LDL/HDL Ratio 2.0 <3.3 Ratio LDL Cholesterol Patient History Test Date: 03/20/2024 LDL Results: 70 Units: mg/dL % Change: - Test Date: 04/02/2025 LDL Results: 76 Units: mg/dL % Change: +8% P-TSH reflex to FT4 Reviewed date:04/03/2025 10:21:09 AM Interpretation:Normal Performing Lab: Notes/Report: Test performed by [facility] [address] [place] [address] [place] [address] Manuelito Johnson MD, Pickling Operator CLIA: [id number] TSH reflex to FT4 1.35 0.43-5.25 mU/L P-Vitamin D 25-Hydroxy Reviewed date:04/03/2025 10:21:09 AM Interpretation:Normal Performing Lab: Notes/Report: Test performed by [facility] [address] [place] [address] , [place] [address] Manuelito Johnson MD, Pickling Operator CLIA: [id number] Vitamin D 25-Hydroxy 95.5 30.0-100.0 ng/mL Interpretation of Vitamin D 25 OH: < 20 ng/mL - Deficiency 20 - 29 ng/mL - Insufficiency 30 - 100 ng/mL - Sufficiency > 100 ng/mL - Super-therapeutic- toxicity may occur above this level. Clinical correlation required. REASON FOR VISIT 6 months Medications Medication SIG (Take, Route, Frequency, Duration) Notes Start Date End Date Status Atorvastatin Calcium 40 MG TAKE 1 TABLET EVERY DAY; Duration: 90 Active Meloxicam 15 mg TAKE ONE TABLET BY MOUTH EVERY DAY - TAKE WITH FOOD-; Duration: 90 days Active Spiriva Respimat 2.5 MCG/ACT INHALE TWO PUFFS BY MOUTH EVERY DAY; Duration: 28 days Active Metoclopramide HCl 5 MG 1 tablet Orally Twice a day; Duration: 90 days Active Omeprazole 40 MG TAKE 1 CAPSULE EVERY DAY 1/2 TO 1 HOUR BEFORE MORNING MEAL; Duration: 90 Active Pregabalin 150 MG 1 capsule Orally Twi ce a day; Duration: 30 day(s) 02/08/2024 Not-Taking Vital Signs Blood pressure systolic 130 mm Hg 04/02/20 25 Blood pressure diastolic 72 mm Hg 025 Heart Rate 86 /min 04/02/2025 Height 63 in 04/02/2025 Weight 143.8 lbs 04/02/2025 BMI 25.47 kg/m2 04/02/2025 Encounters Encounter Location Date Provider Diagnosis [facility] [address] [place], [place] [id number] 04/02/2025 Erik Chambers Mixed hyperlipidemia E78.2 ; Gastroesophageal reflux disease, esophagitis presence not specified K21.9 ; Chronic obstructive pulmonary disease, unspecified COPD type J44.9 ; Vitamin D deficiency E55.9 ; Osteoporosis screening Z13.820 ; Screening for lung cancer Z12.2 ; Personal history of nicotine dependence Z87.891 ; penitentiary use of drug Z79.899 and BMI 25.0-25.9,adult Z68.25 Assessments Encounter Date Diagnosis (ICD Code) Assessment Notes Treatment Notes Treatment Clinical Notes Section Notes 04/02/2025 Mixed hyperlipidemia (ICD-10 - E78.2) 04/02/2025 Gastroesophageal reflux disease, esophagitis presence not specified (ICD-10 - K21.9) 04/02/2025 Chronic obstructive pulmonary disease, unspecified COPD type (ICD-10 - J44.9) 04/02/2025 Vitamin D deficiency (ICD-10 - E55.9) 04/02/2025 Osteoporosis screening (ICD-10 - Z13.820) 04/02/2025 Screening for lung cancer (ICD-10 - Z12.2) 04/02/2025 Personal history of nicotine dependence (ICD-10 - Z87.891) 04/02/2025 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 :1955 A ge:69 Y S ex:Female Date:04/02/2025 Address:[place], [id number] Subjective: * Chief Complaints: * 1 . 6 months. * HPI: C ardiology: 69 year old female presents with c/o Hyperlipidemia P t here for 6 mo check up. Pt states she is doing well and does not have any concerns. Pt is fasting today. * ROS: D ERMATOLOGY: no R efrain. [...] age 18 ,determination:. * Medications: T aking Atorvastatin Calcium 40 MG Tablet TAKE 1 TABLET EVERY DAY , Taking Metoclopramide HCl 5 MG Tablet 1 tablet Orally Twice a day , Taking Omeprazole 40 MG Capsule Delayed Release TAKE 1 CAPSULE EVERY DAY 1/2 TO 1 HOUR BEFORE MORNING MEAL , Taking Meloxicam 15 mg Tablet TAKE ONE TABLET BY MOUTH EVERY DAY - TAKE WITH FOOD- , Taking Spiriva Respimat 2.5 MCG/ACT Aerosol Solution INHALE TWO PUFFS BY MOUTH EVERY DAY , Not-Taking Pregabalin 150 MG Capsule 1 capsule Orally Twice a day , Medication List reviewed and reconciled with the patient * Allergies: N .K.D.A. Objective: * Vitals: W t: 143.8, Temp: 97.9, BP: 130/72, HR: 86, Nurse: ela, Ht: 63, BMI:25.47. * Examination: G eneral Examination: General Appearance: N AD. H eart: R SR. L ungs:?clear to auscultation. P eripheral pulses: n ormal (2+) bilaterally. E xtremities:?no leg edema. Assessment: * Assessment: 1. M ixed hyperlipidemia - E78.2 (Primary) 2 . G astroesophageal reflux disease, esophagitis presence not specified - K21.9 3 . C hronic obstructive pulmonary disease, unspecified COPD type - J44.9 4 . V itamin D deficiency - E55.9 5. O steoporosis screening - Z13.820 6 . S creening for lung cancer - Z12.2 7 . P ersonal history of nicotine dependence - Z87.891 ?8. L kate term use of drug - Z79.899 9 . B [place] 25.0-25.9,adult - Z68.25? Plan: * Treatment: Value Reference Range A /G Ratio 1.8 1.1-2.5 - * A lbumin 4.4 3.5-5.3 - g/dL * A lkaline Phosphatase 148 H 35-121 - IU/L * A LT (SGPT) 20 <5-47 - IU/L * A ST (SGOT) 26 <5-40 - IU/L * B ilirubin, Total 0.7 <0.2-1.2 - mg/dL * B UN 8 8-23 - mg/dL * C alcium 9.6 8.6-10.4 - mg/dL * C hloride 104 97-108 - mmol/L * C O2 27 20-32 - mmol/L * C reatinine 0.74 0.50-1.00 - mg/dL * G lucose 85 65-99 - mg/dL * P otassium 3.7 3.5-5.3 - mmol/L * S odium 142 135-145 - mmol/L * P rotein 6.8 6.0-8.3 - g/dL * e GFR by Creatinine 88 >59 - mL/min/1.73m2 * Belkis Kim 04/03/2025 10:2 1:03 AM EDT > See phone encounter ?LAB: P-Lipid Panel (Collection Date & Time - 04/02/2025 10:53 AM)?trigs 252, hdl 38* Value Reference Range C holesterol / HDL Ratio 4.32 0.00-4.44 - Ratio * C holesterol 164 <200 - mg/dL * H DL Cholesterol 38 L >39 - mg/dL * L DL Cholesterol (Calculation) 76 <130 - mg/d L * L DL/HDL Ratio 2.0 <3.3 - Ratio * N on-HDL Cholesterol 126 <130 - mg/dL * T riglycerides 252 H <150 - mg/dL * Belkis Kim 04/03/2025 10:2 1:03 AM EDT > See phone encounter ?LAB: P-TSH reflex to FT4 (Collection Date & Time - 04/02/2025 10:53 AM)? Normal* Value Reference Range T SH reflex to FT4 1.35 0.43-5.25 - mU/L * Belkis Kim 04/03/2025 10:2 1:03 AM EDT > See phone encounter 2.?Vitamin D deficiency?LAB: P-Vitamin D 25-Hydroxy (Collection Date & Time - 04/02/2025 10:53 AM)? Normal* Value Reference Range V itamin D 25-Hydroxy 95.5 30.0-100.0 - ng/mL * Belkis Kim 04/03/2025 10:2 1:03 AM EDT > See phone encounter 3.?Osteoporosis screening?Imaging: DEXA Hip and Spine* Smita Morel 04/02/2025 11:4 8:13 AM EDT > faxed to [facility] Scheduling 4.?Screening for lung cancer?Imaging: CT Scan : Chest, low dose* Maria Teresa Smita 04/02/2025 11:4 3:58 AM EDT > no auth required; CPT code 74588; faxed to [facility] Scheduling 5.?Personal history of nicotine dependence?Imaging: CT Scan : Chest, low dose* Maria Teresa Smita 04/02/2025 11:4 3:58 AM EDT > no auth required; CPT code 14586; faxed to [facility] Scheduling 6.?penitentiary use of drug?LAB: CBC Venipuncture (in house) (Collection Date & Time - 04/02/2025)* Value Reference Range w bc 8.3 3.5 - 10 * l ymph 20.9% 15 - 50 * m id 5.5% 2 - 15 * g ran 4.83 35 - 80 * r bc 4.83 3.5 - 5.5 * h gb 15.0 11.5 - 16.5 * h ct 44.5 35 - 55 * m cv 92.2 75 - 100 * m ch 31.1 25 - 35 * m chc 33.7 31 - 38 * p latlet 256 100 - 400 * Indiana Sheikh 04/02/2025 12:13: 43 PM EDT >Erik Chambers 04/02/2025 11:25:57 PM EDT > * Procedure Codes: G 2211 Complex e/[place] [address] CBC WITH AUTO DIFF, G8420 BMI<30 AND >=22 CALC & DOCU, G8783 BP SCR PRFRM RCMDD DEFIND SCR INTVL, G8752 MOST RECENT SYSTOLIC BP < 140MM HG, G8754 MOST RECENT DIASTOLIC BP < 90MM HG * Follow Up: 6 Months * Images: Billing Information: * Visit Code: 48607 Office Visit, Est Pt., Level 4. * Procedure Codes: G2211 Complex e/[place]. [address] CBC WITH AUTO DIFF. G8420 BMI<30 AND >=22 CALC & DOCU. G8783 BP SCR PRFRM RCMDD DEFIND SCR INTVL. G8752 MOST RECENT SYSTOLIC BP < 140MM HG. G8754 MOST RECENT DIASTOLIC BP < 90MM HG. * Electronic signature of Elsie Chambers MD on 04/16/2025 at 08:55 AM EDT Sign off status: Pending * Provider: Sameer Chambers M.D. Date: 0 04/02/2025 Generated for Catrachito mancuso/Ciro/Daviditting on: 0 04/16/2025 08:55 AM EDT History and Physical Notes * HPI (History of Present Illness) Category Sub-Category Detail Notes Category Not es Cardiology Hyperlipidemia Pt here for 6 mo check up. Pt states she is doing well and does not have any concerns. Pt is fasting today Examination Category Sub-Category Detail Notes Category Not es General Examination Heart: RSR Lungs: clear to auscultatio n Extremities: no leg edema General Appearance: NAD Peripheral pulses: normal (2+) bilatera lly
--- NOTE | 2025-04-16 08:55 | XR_ITS ---
FINAL REPORT CLINICAL HISTORY: SCREENING COMPARISON: none FINDINGS: Using L1-4, the bone mineral density of the spine is 0.835 g/cm2, corresponding to T-score of -1.9, consistent with osteopenia. Using the left hip, the bone mineral density of the femoral neck is 0.568 g/cm2, corresponding to a T-score of -2.5, consistent with osteoporosis. Using the right hip, the bone mineral density of the femoral neck is 0.529 g/cm2, corresponding to a T-score of -2.9, consistent with osteoporosis. FRAX not reported because some T-score at or below -2.5. NOTE: T-score: Standard deviation compared with peak bone mass of young adult mean. *Following the recommendations of the International Society of Bone densitometry, classification of hip BMD is based on the lower of two T-scores; total hip or femoral neck. IMPRESSION: Diminished bone mineral density consistent with osteoporosis. Reviewed, Interpreted and Dictated by Jass Mooney MD Transcribed by Agnes Ayala Authenticated and [facility]
--- OUTSIDE RECORDS SUMMARY | 2025-04-16 08:55 | XMS_ITS ---
Author Organization Unknown TREATMENT [facility] Start Date Provider Encounter for Check-up [phone] [facility]
--- OUTSIDE RECORDS SUMMARY | 2025-04-16 08:55 | XMS_ITS | Clinical Summary ---
Author Organization [facility] Address [address] [place] [address] Care Team Providers Care Pin Drafting Machine Tender Name Role Phone Erik Chambers MD Primary Care Provider + [phone] Allergies No known active allergies Medications traMADol (ULTRAM) 50 MG tablet Take 1 tablet by mouth Every 6 (Six) Hours As Needed. 7 tablet 08/10/2023 12:34 PM EST 08/10/2023 Active Encounters Date Type Department Care Team Description 03/09/2025 9:57 AM EDT - 03/09/2025 11:59 PM EDT [place] [address] Brionna [place] MD Visit for screening mammogram Discharge Disposition: Home or Self Care 03/09/2025 Travel from Last 3 Months Family History Medical History Relation Name Comments Breast cancer Mother Ovarian cancer Neg Hx Relation Name Status Comments Mother Social History Tobacco Use Types Packs/Day Years Used Date Smoking Tobacco: Never Assessed Comments No Sex and Gender Information Value Date Recorded Sex Assigned at Not on file Legal Sex Female 2:49 PM EDT Gender Identity Not on file Sexual Orientation Not on file Plan of Treatment Health Maintenance Due Date Last Done Comments ANNUAL PHYSICAL 1955 DXA SCAN 1955 HEPATITIS C SCREENING 1955 TDAP/TD VACCINES (1 - Tdap) 1976 COLOGUARD 2002 COLON CANCER SCREENING 5 YEA R SIGMOIDOSCOPY 2002 COLONOSCOPY 2002 [address] CANCER SCREENING 2002 CT COLONOGRAPHY 2002 FECAL OCCULT BLOOD TEST 2002 FIT Testing (1 year) 2002 COVID-19 Vaccine (4 - 2023-2 5 season) 2024 09/15/2021, 12/08/2020, 11/10/2020 ZOSTER VACCINE (2 of 2) 03/06/2025 01/09/2025 INFLUENZA VACCINE 06/10/2025 06/24/2024, , 06/15/2022, Additional history exists MAMMOGRAM 03/09/2027 03/09/2025, 02/09, 06/13/2023, Additional history exists Pneumococcal Vaccine 50+ Completed 01/09/2025, 12/2023 Procedures Procedure Name Priority Date/Time Associated Diagnosis Comments MAMMO SCREENING DIGITAL TOMOSYNTHESIS BILATERAL W CAD Routine 03/09/2025 10:45 AM EDT [facility] Routine 02/22/2025 9:13 AM EDT from Last 3 Months Results * Mammo Screening Digital Tomosynthesis Bilateral [...] calcifications, or areas of distortion are seen. Brionna [place] MD IMG MAMMOGRAPHY ORDERABLE S Final Result * [facility] GENETIC RISK ASSESSMENT QUESTIONNAIRE - , (02/22/2025 9:13 AM EDT) Anoop 11.2 [facility] GENETICS NCCN NCCN not met [facility] Comment:High Risk Cancer Ris k Assessment 02/22/2025 9:13 AM EDT Brionna [place] MD GENETIC TESTING Final Res ult [employer]
[address] [place] [address], from Last [address] Insurance [facility] MEDICARE ADVANTAGE PPO Care Teams Pin Drafting Machine Tender Relationship Specialty Start Date End Date Erik Chambers MD [address] [place] [address] PCP - General Family Medicine 03/27/23
--- OUTSIDE RECORDS SUMMARY | 2025-04-16 08:55 | XMS_ITS | Encounter Summary ---
[facility] Address [address] [place] [id number] Care Team Providers Care Reception Clerk Name Role Phone Erik Chambers MD Primary Care Provider + [phone] Encounter Details Date Type Department Care Team (Latest Contact Info) Description 03/09/2025 Travel Social History Tobacco Use Types Packs/Day Years Used Date Smoking Tobacco: Never Assessed Comments No Sex and Gender Information Value Date Recorded Sex Assigned at Not on file Legal Sex Female 2:49 PM EDT Gender Identity Not on file Sexual Orientation Not on file documented as of this encounter Plan of Treatment Not on file documented as of this encounter Visit Diagnoses Not on filedocumented in this encounter Care Teams Reception Clerk Relationship Specialty Start Date End Date Erik Chambers MD [address] [facility] [address] [place] [address] PCP - General Family Medicine 03/27/23 documented as of this encounter
--- OUTSIDE RECORDS SUMMARY | 2025-04-16 08:55 | XMS_ITS | Patient Health Record ---
Author Organization [facility] [facility] Address [address] [place] [id number] Care Team Providers Care Promotion Specialist Name Role Phone Erik Chambers Primary Care Provider [phone] Allergies No Known Allergies Results Component Value [...] - 38 plat 188 100 - 400 P-CBC With Platelet And Diff erential Reviewed date:09/12/2024 03:24:33 PM Interpretation:Normal Performing Lab: Notes/Report: Test performed by [facility] [address] [place] [address] , [address], [place] [address] Manuelito Johnson MD, Personalization Specialist CLIA: [id number] WBC 10.8 3.8-11.5 K/uL Red Blood Cell [...] Interpretation:Normal Performing Lab: Notes/Report: Test performed by [facility] [address] [place], [place] [address] [place] , [address], [place] [address] Manuelito Johnson MD, Personalization Specialist CLIA: [id number] Vitamin D 25-Hydroxy 56.5 30.0-100.0 ng/mL Interpretation of Vitamin D 25 OH: < 20 ng/mL - Deficiency 20 - 29 ng/mL - Insufficiency 30 - 100 ng/mL - Sufficiency > 100 ng/mL - Super-therapeutic- toxicity may occur above this level. Clinical correlation required. CBC Venipuncture (in house) Reviewed date:04/02/2025 11:26:04 [...] 148 Performing Lab: Notes/Report: Test performed by [facility] [address] [place] [address] , [address], [place] [address] Manuelito Johnson MD, Personalization Specialist CLIA: [id number] Sodium 142 135-145 mmol/L Potassium 3.7 3.5-5.3 [...] 38 Performing Lab: Notes/Report: Test performed by [facility], [address] , [address] , [place] [address] Manuelito Johnson MD, Personalization Specialist CLIA: [id number] Cholesterol 164 <200 mg/dL Triglycerides 252 <150 [...] Interpretation:Normal Performing Lab: Notes/Report: Test performed by [facility] [address] [place] [address] , [place] [address] Manuelito Johnson MD, Personalization Specialist CLIA: [id number] TSH reflex to FT4 1.35 0.43-5.25 mU/L P-Vitamin D 25-Hydroxy Reviewed date:04/03/2025 10:21:09 AM Interpretation:Normal Performing Lab: Notes/Report: Test performed by [facility] [address] [place] [address] , [place] [address] Manuelito Johnson MD, Personalization Specialist CLIA: [id number] Vitamin D 25-Hydroxy 95.5 30.0-100.0 ng/mL Interpretation of Vitamin D 25 OH: < 20 ng/mL - Deficiency 20 - 29 ng/mL - Insufficiency 30 - 100 ng/mL - Sufficiency > 100 ng/mL - Super-therapeutic- toxicity may occur above this level. Clinical correlation required. CBC Fingerstick (in house) Reviewed date:07/31/2024 12:04:54 PM Interpretation: Performing Lab: Notes/Report: wbc 9.5 3.5 - 10 lym 28.9% 15 - 50 mid 7.3% 2 - 15 gran 63.8% 35 - 80 rbc 5.00 3.5 - 5.5 hgb 15.7 11.5 - 16.5 hct 46.8 35 - 55 mcv 93.6 75 - 100 mch 31.3 25 - 35 mchc 33.4 31 - 38 plat 237 100 - 400 Medications Medication SIG (Take, Route, Frequency, Duration) Notes Start Date End Date Status Pregabalin 150 MG 1 capsule Orally Twi ce a day; Duration: 30 day(s) 02/08/2024 Not-Taking Atorvastatin Calcium 40 MG TAKE 1 TABLET EVERY DAY; Duration: 90 Active Spiriva Respimat 2.5 MCG/ACT 2 puffs Inhalation Once a day; Duration: 28 days Active Meloxicam 15 mg TAKE ONE TABLET BY MOUTH EVERY DAY - TAKE WITH FOOD-; Duration: 90 days Active Metoclopramide HCl 5 MG 1 tablet Orally Twice a day; Duration: 90 days Active Omeprazole 40 MG TAKE 1 CAPSULE EVERY DAY 1/2 TO 1 HOUR BEFORE MORNING MEAL; Duration: 90 Active Immunizations Vaccine Route Administration Date Status Comme nts COVID 19 Moderna Unknown 11/10/2020 Administered COVID 19 Moderna Unknown 12/08/2020 Administered COVID 19 Moderna Unknown 09/15/2021 Administered Fluzone Intradermal Quad private(18-64yrs) Unknown 06/07/2016 Administered Fluzone PF Quad (6-35 months) Unknown 06/07/2016 Administered Fluzone PF Quad (6-35 months) Unknown 05/23/2017 Administered Fluzone Quad (6months&older) Unknown 05/23/2017 Administered Fluzone Quad (6months&older) IM Intramuscular 06/03/2018 Administered Hepatitis A (adult) IM Intramuscular 12/12/2018 Administer ed Hepatitis A (adult) Unknown 06/25/2019 Administered PNEUMOVAX 23 VACCINE IM Intramuscular 06/15/2020 Administe red Prevnar (PCV20) IM Intramuscular 09/13/2023 Administered Shingrix Unknown 09/10/2019 Administered Shingrix Unknown 03/10/2020 Administered Tetanus Tdap-Adacel (over 7yrs) IM Intramuscular 11/14/2013 Administered Tetanus Tdap-Adacel (over 7yrs) IM Intramuscular 06/15/2020 Administered xFluzone (6mos and older)-trivalent IM Intramuscular 06/05/2014 Administered Problems Problem Type SNOMED Code ICD Code Onset Dates Problem Status W/U Status Risk Notes Problem Sinusitis (40893141) Sinusitis (J32.9) Active confirmed Problem Vitamin D deficiency (85558497) Vitamin D deficiency (E55.9) Active confirmed Problem Abnormal mammogram (876695985) Abnormal mammogram (R92.8) Active confirmed Problem Osteopenia (586375838) Osteopenia (M85.80) Active confirmed Problem Abnormal findings on diagnostic imaging of breast (292570335) Abnormal mammogram of both breasts (R92.8) Active confirmed Problem Mixed hyperlipidemia (074801311) Mixed hyperlipidemia (E78.2) Active confirmed Problem Nicotine dependence (21812015) Personal history of nicotine dependence (Z87.891) Active confirmed Problem COPD - Chronic obstructive pulmonary disease (40621043) Chronic obstructive pulmonary disease, unspecified COPD type (J44.9) Active confirmed Problem Gastroesophageal reflux disease (148869530) Gastroesophageal reflux disease, esophagitis presence not specified (K21.9) Active confirmed Problem Migraine (88179961) Migraine wit hout status migrainosus, not intractable, unspecified migraine type (G43.909) Active confirmed Problem Lumbosacral spondylosis without myelopathy (98506115) Facet degeneration of lumbar region (M47.816) Active confirmed Problem Sciatica (34668729) Right sided sciatica (M54.31) Active confirmed Problem Tobacco user (626401129) Cigarette nicotine dependence without complication (F17.210) Active confirmed Problem Sciatica (76427922) Acute right- sided low back pain with right-sided sciatica (M54.41) Active confirmed Problem 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) Pulmonary fibrosis determined by high resolution computed tomography (J84.10) Active confirmed Problem Degenerative disc disease (04073823) DDD (degenerative disc disease), lumbar (M51.36) Active confirmed Problem Mammography abnormal (820225578) Abnormal finding on breast imaging (R92.8) Active confirmed Vital Signs Heart Rate 86 /min 04/02/2025 Blood pressure diastolic 72 mm Hg 04/02/2025 Height 63 in 04/02/2025 Blood pressure systolic 130 mm Hg 04/02/2025 Weight 143.8 lbs 04/02/2025 BMI 25.47 kg/m2 04/02/2025 Encounters Encounter Location Date Provider Diagnosis [facility] [facility] [address] [facility] [place] [id number] 07/31/2024 Erik Jefferson Acute cough R05.1 [facility] [facility] [address] [facility] [address] [place], [place] [id number] 08/27/2024 Erik Jefferson Acute cough R05.1 [facility] [facility] [address] [facility] [place] [id number] 09/11/2024 Erik Jefferson Chronic cough R05.3 ; Chronic obstructive pulmonary disease, unspecified COPD type J44.9 ; Vitamin D deficiency E55.9 and Mixed hyperlipidemia E78.2 [facility] [facility] [address] [facility] [place] [id number] 04/02/2025 Erik Jefferson Mixed hyperlipidemia E78.2 ; Gastroesophageal reflux disease, esophagitis presence not specified K21.9 ; Chronic obstructive pulmonary disease, unspecified COPD type J44.9 ; Vitamin D deficiency E55.9 ; Osteoporosis screening Z13.820 ; Screening for lung cancer Z12.2 ; Personal history of nicotine dependence Z87.891 ; skilled nursing use of drug Z79.899 and BMI 25.0-25.9,adult Z68.25 [facility] [facility] [address] [facility] [address] [place], [place] [id number] 04/24/2024 Erik Jefferson [facility] [address] [facility] [address] [place], [place] [id number] 05/02/2024 Erik Jefferson [facility] [address] [facility] [address] [place] [id number] 11/04/2024 Erik Jefferson Chronic obstructive pulmonary disease, unspecified COPD type J44.9 [facility] [address] [facility] [address] [place], [place] [id number] 04/02/2025 Erik Jefferson [facility] [address] [facility] [address] [place], [place] [id number] 04/03/2025 Erik Jefferson Assessments Encounter Date Diagnosis (ICD Code) Assessment Notes Treatment Notes Treatment Clinical Notes Section Notes 07/31/2024 Acute cough (ICD-10 - R05.1) 08/27/2024 Acute cough (ICD-10 - R05.1) 09/11/2024 Chronic obstructive pulmonary disease, unspecified COPD type (ICD-10 - J44.9) 09/11/2024 Chronic cough (ICD-10 - R05.3) 11/04/2024 Chronic obstructive pulmonary disease, unspecified COPD type (ICD-10 - J44.9) 04/02/2025 Mixed hyperlipidemia (ICD-10 - E78.2) 04/02/2025 Gastroesophageal reflux disease, esophagitis presence not specified (ICD-10 - K21.9) 04/02/2025 Chronic obstructive pulmonary disease, unspecified COPD type (ICD-10 - J44.9) 09/11/2024 Vitamin D deficiency (ICD-10 - E55.9) 09/11/2024 Mixed hyperlipidemia (ICD-10 - E78.2) 04/02/2025 Vitamin D deficiency (ICD-10 - E55.9) 04/02/2025 Osteoporosis screening (ICD-10 - Z13.820) 04/02/2025 Screening for lung cancer (ICD-10 - Z12.2) 04/02/2025 Personal history of nicotine dependence (ICD-10 - Z87.891) 04/02/2025 skilled nursing use of drug (ICD-10 - Z79.899) 04/02/2025 BMI 25.0-25.9,adult (ICD-10 - Z68.25) Plan Of Treatment Pending Test Test Name Order Date DEXA Hip and Spine 04/02/2025 CT Scan : Chest, low dose 04/02/2025 Next Appt Details Provider Name:Erik Sandoval ry, 10/05/2025 10:45:00 AM, [address] [facility], [address], [place], [place], [id number], Insurance Providers Payer Name Payer Address Payer Phone Subscriber Number Group Number Insured Name Patient Relationship to Insured Coverage Start Date Coverage End Date [employer] (MEDICAR E) [address] [address] [place] [phone] [id number] BISHNU CORNELL Self - patient is the insured Medical (General) History Medical History History ICD Code Esophageal Reflux Hyperlipidemia Tobacco Abuse, 40 Year Smoking History a s of 2015 Chronic RT Wrist Pain COPD Lumbar facet arthropathy Lumbar Disc Disease Sciatica, s/p pain management eval in and epidural injections Surgical History Surgery Date(Month/Year) Partial Hysterectomy D&C BTL Broken Wrist 10/2015 Bioposy of the Right Breast 08/10/2023 Hospitalization History Reason Date(Month/Year) Childbirth Mumps Encephalitis
--- NOTE | 2025-04-16 08:56 | CT_ITS ---
FINAL REPORT TECHNIQUE: Axial CT images of the chest were obtained without contrast. Low-dose protocol was utilized. This study was performed with techniques to keep radiation doses as low as reasonably achievable (ALARA). Individualized dose reduction techniques using automated exposure control or adjustment of mA and/or kV according to the patient's size were employed. CLINICAL HISTORY: SCREENING, smoker x 45 yrs, less than half a pack per day, exposure to asbestosis & second hand smoke COMPARISON: 04/03/2024 FINDINGS: CT CHEST WITHOUT, LOW DOSE SCREENING CT Di Vol: 2.90 mGy DLP: 108.90 mGy*cm There is no axillary, mediastinal, or hilar adenopathy. The heart size is normal. There are moderate vascular calcifications of the aortic arch and coronal arteries. There is no pleural or pericardial effusion. The lung windows show no suspicious mass or nodule. There is calcified residual old granulomatous disease in the AP window and left hilum. Limited images of the upper abdomen demonstrate no acute findings. IMPRESSION: No suspicious mass or nodule. LR Category 1: 12 month follow-up low-dose chest CT is recommended per Fleischner criteria. Reviewed, Interpreted and Dictated by Jass Mooney MD Transcribed by Agnes Ayala Authenticated and [facility]
== END 2025-04-16 23:59 | disposition home or self-care (01) ==
LOC: RAD 08:53
PROVIDERS: PCP Family Medicine; Visit Provider Family Medicine
DX: M81.0 Age-related osteoporosis without current pathological fracture (principal); Z12.2 Encounter for screening for malignant neoplasm of respiratory organs; F17.210 Nicotine dependence, cigarettes, uncomplicated; Z77.090 Contact with and (suspected) exposure to asbestos
CPT/HCPCS: 71271; 77080